=== PATIENT | female | born 2000 | race Caucasian/White ===

== ENCOUNTER 2024-06-03 15:50 | Inpatient (IN) | payer OTHER, SELFPAY ==
[2024-06-03 16:00] VITALS: BP 145/72; PULSE 80; RESP 17; TEMP 36.8; O2SAT 98
[2024-06-03 16:02] VITALS: BP 128/76; PULSE 96; O2SAT 98; BMI 30.4
--- NOTE | 2024-06-03 16:06 | PC.NURSE ---
pt JACKY from [facility] where she was discharged, pt did not like the correction staff who was there to pick her up and refused to get in the car with her. pt calm and cooperative upon arrival to [facility]
--- NOTE | 2024-06-03 16:07 | PC.NURSE ---
skilled nursinghome mission worker: Gen Birch Director Jasiel: [phone]
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
--- NOTE | 2024-06-03 17:10 | PC.NURSE ---
pt changed over to hospital attire with security. pt refused to take off her bra. Security decided to let her keep it on for now to keep pt calm as she has a hx of outbursts. RN notified. Pt calm. Daniel RIVERA/griselda IRAHETA. sitter at bedside for safety - pt from [facility]
[2024-06-03] MEDS: LORazepam 1 MG TABLET PO (19:55)
[2024-06-03 22:14] VITALS: BP 103/53; PULSE 75; RESP 12; TEMP 36.2; O2SAT 100
--- NOTE | 2024-06-03 23:19 | MHC.EDTECH ---
Pt beloingings found under plant controller desk at 22:45, placed in locker C4, belongings list completed.
[2024-06-03] MEDS: Haloperidol Lactate 5 MG/ML VIAL IM (23:32)
[2024-06-03] MEDS: LORazepam 2 MG/ML VIAL IM (23:32)
[2024-06-03] MEDS: diphenhydrAMINE HCL 50 MG/ML VIAL IM (23:32)
[2024-06-03] MEDS: Ziprasidone Mesylate 20 MG VIAL IM (23:52)
--- NOTE | 2024-06-04 | ECG_ITS ---
Test Reason : assess qt interval Blood Pressure : / mmHG Vent. Rate : 083 BPM Atrial Rate : 083 BPM P-R Int : 130 ms QRS Dur : 090 ms QT Int : 362 ms P-R-T Axes : 045 045 019 degrees QTc Int : 425 ms Normal sinus rhythm with sinus arrhythmia Septal infarct , age undetermined Abnormal ECG No previous ECGs available Referred By: Pretty Gerard Electronically Signed By:ADRIANO YEAGER
[2024-06-04 01:15] VITALS: PULSE 92; RESP 14; O2SAT 96
[2024-06-04 01:25] VITALS: BP 108/52; PULSE 94; RESP 14; TEMP 36.6; O2SAT 95
[2024-06-04 01:45] VITALS: BP 110/56; PULSE 93; RESP 14; O2SAT 96
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
[2024-06-04 08:42] VITALS: BP 99/61; PULSE 80; RESP 12; TEMP 36.4; O2SAT 96
--- NOTE | 2024-06-04 11:44 | PC.NURSE ---
labs obtained/sent to lab. pt aware urine sample is needed. will obtain when able. 1:1 sitter remains present. respirations remain even/unlabored. plan of care ongoing.
[2024-06-04 11:59] LABS: Basophils Percent Auto 0.4 % (0-2); Eosinophils Absolute Auto 0.1 X10*3/uL (0.0-0.4); Hematocrit 36.4 % (37.0-47.0); Imm Gran Abs Auto 0.01 X10*3/uL (0.00-0.03); Imm Gran Pct Auto 0.2 % (0.0-0.4); Lymphocytes Percent Auto 53.4 % (20-40); MANUAL DIFF FLAG SCAN; Mean Corpuscular Hemoglobin 29.9 pg (27.0-33.0); Mean Corpuscular Volume 90.5 fL (80.0-98.0); Mean Platelet Volume 11.5 fL (9.4-12.3); Monocytes Absolute Auto 0.6 X10*3/uL (0.1-1.2); Monocytes Percent Auto 9.8 % (2-11); Neutrophils Absolute Auto 1.9 x10*3/uL (2.0-8.3); Neutrophils Percent Auto 34.2 % (45-73); Platelet Count 161 X10*3/uL (160-400); Red Blood Count 4.02 X10*6/uL (4.20-5.50); Red Cell Distribution Width 13.2 % (11.0-16.0); SCAN SMEAR FLAG 1; White Blood Count 5.6 X10*3/uL (4.8-10.8)
[2024-06-04 12:25] LABS: Alanine Aminotransferase 12 U/L (0-31); Albumin Level 3.6 g/dL (3.5-5.0); Alkaline Phosphatase 35 U/L (39-117); Anion Gap 9 (12-20); Aspartate Amino Transferase 17 U/L (5-31); Bilirubin Total 0.2 mg/dL (0.0-1.0); Blood Urea Nitrogen 15 mg/dL (9-16); Calcium 9.4 mg/dL (8.4-10.2); Carbon Dioxide 26 mmol/L (22-29); Chloride 108 mmol/L (96-108); Creatinine Clr Calc Pharmacy 136.9; Estimated Glomerular Filt Rate > 60; Glucose Random 95 mg/dL (60-115); HCG Quantitative < 2 mIU/mL; Sodium 139 mmol/L (135-145); Total Protein 6.6 g/dL (6.5-8.0)
--- NOTE | 2024-06-04 12:45 | MHC.CARE ---
Patient seen by CARE team, IPLOC loc determined.
[2024-06-04 13:07] LABS: SLIDE REVIEW VERIFIED
--- NOTE | 2024-06-04 16:46 | PC.NURSE ---
at this time, pt currently needs UA/drug screen/ekg performed so inpatient bed search can continue. pt refusing for all interventions to be completed. care team notified/aware. 1:1 sitter remains bedside.
--- NOTE | 2024-06-04 16:47 | MHC.CARE ---
Pt bed search is exhausted. Pt [facility] was [facility] to [facility], [facility], [facility], [facility], [facility], [facility], [facility], [facility], [place]. No beds were available
--- NOTE | 2024-06-04 17:17 | PHA.MEDREC ---
Addendum entered by Toby Allen RPh 06/04/24 17:50: Med rec reviewed Original Note: Pharmacy Consult ? Medication Reconciliation Pharmacy has completed the medication reconciliation. Utilized list from [facility] to confirm med list.
--- NOTE | 2024-06-04 17:48 | PC.NURSE ---
Patient walked to by EDT Chapis, patient immediately requesting ativan, no meds ordered. Patient continues to refuse UA and EKG, states you don't need that stuff . Provider Murtaza made aware med rec is complete, patient medication request, and refusal of EKG/UA.
--- NOTE | 2024-06-04 18:10 | PC.NURSE ---
BELONGINGS MOVED TO LOCKER 2
--- NOTE | 2024-06-04 18:16 | PC.NURSE ---
Informed by commercial counsel patient allowed MP3 player at bedside to for comfort, patient not willing to put MP3 away, all staff aware patient has MP3 player at bedside.
[2024-06-04 20:10] VITALS: BP 114/64; PULSE 84; RESP 16; TEMP 36.1; O2SAT 98
--- NOTE | 2024-06-04 20:21 | PC.NURSE ---
Patient refused all PM meds, informed patient to let staff know if she changes her mind.
--- NOTE | 2024-06-04 23:27 | PC.NURSE ---
pt out of her room requesting food, unhappy with sandwiches there were offered. requested pudding, was very mad they a paper spoon was provided. back to room with pudding, yelling in room
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
--- NOTE | 2024-06-05 00:03 | PC.NURSE ---
deescalated pt sandwich provided in exchange for taking meds and cooperating
[2024-06-05] MEDS: LORazepam 1 MG TABLET PO (00:04)
--- NOTE | 2024-06-05 00:04 | PC.NURSE ---
pt refused bedtime medication from previous RN, agreed to take one ativan at this time. documented in OCT. pt aware she has to have been behavior moving forward to keep her MP3 player
--- NOTE | 2024-06-05 01:20 | PC.NURSE ---
pt sitting on the floor next to her bed, blankets over her head. crying at this time. trying to talk to pt, she didnt want to talk. was there for support for a while. security argueta present, also talked with pt, search room at that time. soda bottle found and taken, book at bedside, mp3 and air pods taken to charge, pt was happy to have that done. out of room talking to staff
--- NOTE | 2024-06-05 01:46 | PC.NURSE ---
pt talking and laughing with staff, playing mame at the table with tailor apprentice
--- NOTE | 2024-06-05 05:07 | PC.NURSE ---
encouraged pt to get some rest. pt refused. walking around the unit, requesting something to eat. pleasant with staff. ate pudding without issue
[2024-06-05 06:00] VITALS: BP 138/80; PULSE 89; RESP 18; TEMP 37.2; O2SAT 98
--- NOTE | 2024-06-05 07:11 | PC.NURSE ---
Assumed care of patient at 0645, patient appears to be in no apparent distress this am, up talking on phone in common area. Patient offers no complaints to this RN at this time. Continue plan of care for CARE team assessment today
[2024-06-05] MEDS: LORazepam 2 MG/ML VIAL IM (07:35)
[2024-06-05] MEDS: Haloperidol Lactate 5 MG/ML VIAL IM (07:35)
[2024-06-05] MEDS: diphenhydrAMINE HCL 50 MG/ML VIAL IM (07:35)
[2024-06-05] MEDS: Midazolam HCl/PF 2 MG/2 ML VIAL IM (08:50)
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
--- NOTE | 2024-06-05 12:48 | MHC.CARE ---
Faxed assessment to [facility] for review for IPLOC admission.
[2024-06-05 14:49] VITALS: PULSE 92; RESP 16; O2SAT 96
--- NOTE | 2024-06-05 15:14 | PC.NURSE ---
Late entry: This RN removed MP3 player and earbuds from pts possession during restraint
--- NOTE | 2024-06-05 17:13 | MHC.CARE ---
Late entry. Pt has been asleep and unavailable for MSU re-assessment. Pt was restrained and given IM earlier this afternoon.
--- NOTE | 2024-06-05 17:19 | PC.NURSE ---
Pt has been sleeping since being removed from restraints, respirations even and unlabored, no apparent distress noted
--- NOTE | 2024-06-05 20:50 | PC.NURSE ---
Patient refused medication requested headphones and mp3 player per coping mechanism. Was given a peanut butter and jelly sandwich a drink and her mp3 player. charge nurse aware
--- NOTE | 2024-06-06 00:04 | PC.NURSE ---
Patient medicated with Lorazepam 2 mg PO for anxiety.
[2024-06-06] MEDS: LORazepam 1 MG TABLET 2 MG PO (00:48)
[2024-06-06 05:02] VITALS: BP 135/84; PULSE 94; RESP 16; O2SAT 99
[2024-06-06] MEDS: Omeprazole 20 MG CAPSULE.DR PO (07:29)
[2024-06-06] MEDS: hydrOXYzine HCL 10 MG TABLET PO ×2 (07:29→14:14)
[2024-06-06] MEDS: LORazepam 1 MG TABLET PO ×2 (07:30→22:06)
[2024-06-06] MEDS: Divalproex Sodium 500 MG TABLET.DR PO ×3 (07:30→22:05)
--- NOTE | 2024-06-06 08:44 | PC.NURSE ---
Assumed care of patient at 0645, patient appears to be in better spirits today although reporting that she got no sleep last night. She also reports some mild nausea and GERD symptoms. Pt medicated with morning Omeprazole. Pt requesting medication to help her sleep, this RN spoke with MD Baugh who okay'd giving her her morning medications early to assist with sleeping and avoid a restraint episode similar to yesterday. pt was receptive to this RNs verbal redirection. Pt provided with hospital headphones and since been listening to music and laying in bed. Pt ate about 75% of her breakfast this am as well. Continue plan of care for inpatient bedsearch at this time
[2024-06-06] MEDS: busPIRone HCl 5 MG TABLET 15 MG PO (14:14)
[2024-06-06] MEDS: Acetaminophen 325 MG TABLET 650 MG PO (14:14)
[2024-06-06 16:36] VITALS: PULSE 87; RESP 14; O2SAT 98
--- NOTE | 2024-06-06 16:37 | PC.NURSE ---
Patient slept majority of morning without issue, woke up for lunch, now resting in bed, respirations even and unlabored, no apparent distress. Patient responds well to redirection via music, patient utilizing pod headphones at this time
[2024-06-06] MEDS: OLANZapine 7.5 MG TABLET 15 MG PO (22:06)
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
[2024-06-06] MEDS: diphenhydrAMINE HCL 50 MG/ML VIAL IM (23:19)
[2024-06-06] MEDS: Haloperidol Lactate 5 MG/ML VIAL 10 MG IM (23:19)
[2024-06-06] MEDS: LORazepam 2 MG/ML VIAL IM (23:19)
--- NOTE | 2024-06-07 02:10 | PC.NURSE ---
alejo miller engaging client regularly and apparently able to convince clinet to attempt ekg. clinet having snacks in room
--- NOTE | 2024-06-07 05:23 | PC.NURSE ---
patient awoke about ten minutes ago. fairly concrete thought process, expresses anger that foods she desires are not available, declined all offered snacks available. suggested alternate activities.
[2024-06-07 05:38] VITALS: BP 123/76; PULSE 90; RESP 16; TEMP 36.9; O2SAT 100
[2024-06-07 07:02] LABS: Amphetamine Screen Urine Not Detected (Not Detect); Barbiturates, Urine Not Detected (Not Detect); Benzodiazepines Screen Urine Not Detected (Not Detect); Buprenorphine Scr Not Detected (Not Detect); Cannabinoid Screen Urine Not Detected (Not Detect); Cocaine Screen Urine Not Detected (Not Detect); Fentanyl, urine Not Detected (Not Detect); Methadone Screen, Urine Not Detected (Not Detect); Opiate Screen Urine Not Detected (Not Detect); Oxycodone Screen Urine Not Detected (Not Detect); Phencyclidine Screen Urine Not Detected (Not Detect)
[2024-06-07 07:07] LABS: Appearance Urine Clear; Color Urine Yellow; Glucose Urine UA Negative (Negative); Leukocyte Esterase Urine Trace (Negative); Nitrite Urine Negative (Negative); PH 6.5 (5.0-9.0); Specific Gravity - Urine 1.025 (1.005-1.025); UMIC TRIGGER UACC YES; Urine Blood Negative (Negative); Urine Ketones Trace mg/dL (Negative); Urine Protein Negative (Neg-Trace)
[2024-06-07 07:12] LABS: Bacteria Urine None Seen (None Seen); Hyaline Casts Urine 0-2 /LPF (0-2); RBC Urine 0-2 /HPF (0-2); WBC Urine 0-5 /HPF (0-5)
[2024-06-07] MEDS: LORazepam 1 MG TABLET 2 MG PO (07:19)
[2024-06-07] MEDS: OLANZapine 10 MG TABLET PO (07:20)
--- NOTE | 2024-06-07 07:27 | PC.NURSE ---
Assumed care of patient at 0645. Patient was observed with increasing agitated behaviors throwing bedding items out of the room and punching the zuñiga. Security was made aware and arrived onto the unit in attempt to deescalate. The patient was agreeable to oral meds. MD made aware, MD ordered 2mg Ativan PO once and Zyprexa 10mg PO once. Patient took meds willingly, then threw the cup of water onto the floor. No distress observed. Breathing is even and unlabored.
[2024-06-07] MEDS: busPIRone HCl 5 MG TABLET 15 MG PO ×2 (08:07→21:40)
[2024-06-07] MEDS: LORazepam 2 MG/ML VIAL IM (14:26)
[2024-06-07] MEDS: OLANZapine 10 MG VIAL IM (14:26)
[2024-06-07 15:00] VITALS: BP 124/79; PULSE 92; RESP 16; TEMP 36.6; O2SAT 99; BMI 30.4
--- NOTE | 2024-06-07 16:28 | PC.NURSE ---
At approx. 1416 this patient was observed being aggressive, agitated and non-complaint with staff direction. The patient was being transferred to but was refusing to comply with staff direction to get out of bed in order to ambulate to the wheelchair to be escorted to the unit. Upon attempt to move the patient the patient became combative and was attempting to bite at staff. The patient was then moved to a gurney and restrained. Ativan 2mg IM once and Zyprexa 10mg IM once was ordered and administered to the patient on the gurney. The patient was then immediately transported to for treatment.
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
[2024-06-07] MEDS: Melatonin 3 MG TABLET 6 MG PO (21:39)
[2024-06-07] MEDS: OLANZapine 7.5 MG TABLET 15 MG PO (21:40)
[2024-06-07] MEDS: LORazepam 1 MG TABLET PO (21:40)
[2024-06-07] MEDS: hydrOXYzine HCL 10 MG TABLET PO (21:40)
[2024-06-07] MEDS: traZODone HCL 100 MG TABLET PO (21:40)
[2024-06-07] MEDS: Divalproex Sodium 500 MG TABLET.DR PO (21:40)
[2024-06-08] MEDS: Loratadine 10 MG TABLET PO ×2 (01:55→12:46)
--- NOTE | 2024-06-08 02:32 | HO.PSYEVENT ---
Event Note Date of Service: 06/08/24 Psych Restraint Event Note: pt punching zuñiga and doors at 0220 due to her medications not having been brought up by pharmacy, per RN. medications, hold, and chair were used for restraint. Time Spent With Patient Time: Total time managing care of this patient today ____ minutes.
[2024-06-08] MEDS: LORazepam 2 MG/ML VIAL IM (02:50)
[2024-06-08] MEDS: chlorproMAZINE HCl 25 MG/ML AMPUL 100 MG IM (02:52)
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
[2024-06-08 08:00] VITALS: BP 142/91; PULSE 112; RESP 18; TEMP 36.5; O2SAT 100
[2024-06-08] MEDS: busPIRone HCl 5 MG TABLET 15 MG PO (08:17)
[2024-06-08 08:18] VITALS: BP 142/91
[2024-06-08] MEDS: cloNIDine HCL 0.1 MG TABLET PO (08:18)
[2024-06-08] MEDS: Omeprazole 20 MG CAPSULE.DR PO (08:18)
[2024-06-08] MEDS: Propranolol HCL 10 MG TABLET 30 MG PO (08:19)
[2024-06-08] MEDS: Cholecalciferol (Vitamin D3) 25 MCG TABLET PO (08:20)
[2024-06-08] MEDS: LORazepam 1 MG TABLET PO (08:20)
[2024-06-08] MEDS: Divalproex Sodium 500 MG TABLET.DR PO (08:21)
[2024-06-08] MEDS: polyethylene glycoL 3350 17 GM POWD.PACK PO (08:27)
[2024-06-08] MEDS: Fluticasone Propionate Nasal 16 GM SPRAY 2 SPRAY NOSTRIL-B (09:21)
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
[2024-06-08] MEDS: Acetaminophen 325 MG TABLET 650 MG PO (12:31)
[2024-06-08] MEDS: Ibuprofen 600 MG TABLET PO (18:20)
--- NOTE | 2024-06-08 18:57 | PC.NURSE ---
TW reviewed Behavioral Plan for Jessica this evening and pt in agreement and gave verbal consent (she was in bed under covers and didn't want to take her arms out to sign). Copy of behavioral plan given to pt, placed in chart, and posted in nursing station for visibility.
[2024-06-08 20:00] VITALS: RESP 16
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
[2024-06-09] MEDS: Loratadine 10 MG TABLET PO (05:22)
[2024-06-09] MEDS: Omeprazole 20 MG CAPSULE.DR PO (06:29)
[2024-06-09 08:00] VITALS: BP 145/96; PULSE 100; RESP 18; TEMP 36.9; O2SAT 98
[2024-06-09] MEDS: hydrOXYzine HCL 10 MG TABLET PO (08:29)
[2024-06-09] MEDS: Divalproex Sodium 500 MG TABLET.DR PO (08:29)
[2024-06-09] MEDS: Cholecalciferol (Vitamin D3) 25 MCG TABLET PO (08:29)
[2024-06-09] MEDS: LORazepam 1 MG TABLET PO (08:29)
[2024-06-09] MEDS: busPIRone HCl 5 MG TABLET 15 MG PO ×2 (08:29→15:59)
[2024-06-09 08:35] VITALS: BP 145/96; PULSE 110
[2024-06-09] MEDS: Propranolol HCL 10 MG TABLET 30 MG PO (08:35)
[2024-06-09] MEDS: cloNIDine HCL 0.1 MG TABLET PO (08:38)
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
[2024-06-09] MEDS: Acetaminophen 325 MG TABLET 650 MG PO (10:10)
[2024-06-10] MEDS: traZODone HCL 50 MG TABLET PO ×2 (00:02→01:40)
[2024-06-10] MEDS: hydrOXYzine HCL 25 MG TABLET PO (00:02)
[2024-06-10] MEDS: LORazepam 1 MG TABLET PO ×2 (00:03→14:01)
[2024-06-10] MEDS: OLANZapine ODT 10 MG TAB.RAPDIS TRANSLINGU ×2 (00:04→13:59)
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
[2024-06-10] MEDS: Fluticasone Propionate Nasal 16 GM SPRAY 2 SPRAY NOSTRIL-B (01:39)
[2024-06-10] MEDS: Melatonin 3 MG TABLET 6 MG PO (01:39)
[2024-06-10] MEDS: Ibuprofen 600 MG TABLET PO (01:40)
[2024-06-10] MEDS: traZODone HCL 100 MG TABLET PO (02:57)
[2024-06-10] MEDS: OLANZapine ODT 10 MG TAB.RAPDIS 20 MG TRANSLINGU (02:57)
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
[2024-06-10] MEDS: Cholecalciferol (Vitamin D3) 25 MCG TABLET PO (10:03)
[2024-06-10] MEDS: ARIPiprazole 10 MG TABLET PO (10:04)
[2024-06-10] MEDS: Omeprazole 20 MG CAPSULE.DR PO (10:04)
[2024-06-10] MEDS: busPIRone HCl 5 MG TABLET 15 MG PO ×2 (10:05→13:59)
[2024-06-10] MEDS: Loratadine 10 MG TABLET PO (10:05)
[2024-06-10 10:11] VITALS: BP 134/76; PULSE 88
[2024-06-10] MEDS: Propranolol HCL 10 MG TABLET 30 MG PO (10:11)
[2024-06-10 10:12] VITALS: BP 134/76
[2024-06-10] MEDS: cloNIDine HCL 0.1 MG TABLET PO (10:12)
[2024-06-10 10:15] VITALS: BP 134/81; PULSE 88; RESP 18; TEMP 36.5; O2SAT 96
--- NOTE | 2024-06-10 13:02 | PC.NURSE ---
As of today pt is a section 7.
[2024-06-10] MEDS: hydrOXYzine HCL 10 MG TABLET PO (13:59)
[2024-06-10] MEDS: Sennosides 8.6 MG TABLET PO (14:09)
[2024-06-10] MEDS: Ondansetron ODT 4 MG TAB.RAPDIS TRANSLINGU (14:10)
[2024-06-10] MEDS: Lactase TABLET 1 TAB PO (17:05)
[2024-06-11] MEDS: Ondansetron ODT 4 MG TAB.RAPDIS TRANSLINGU (01:13)
[2024-06-11 01:21] VITALS: BP 127/75; PULSE 87; RESP 16
[2024-06-11] MEDS: Melatonin 3 MG TABLET 6 MG PO (02:44)
[2024-06-11] MEDS: hydrOXYzine HCL 25 MG TABLET PO (02:45)
[2024-06-11] MEDS: OLANZapine ODT 10 MG TAB.RAPDIS TRANSLINGU (02:46)
[2024-06-11] MEDS: LORazepam 1 MG TABLET 2 MG PO (06:42)
[2024-06-11] MEDS: Omeprazole 20 MG CAPSULE.DR PO (06:42)
[2024-06-11] MEDS: OLANZapine ODT 10 MG TAB.RAPDIS 20 MG TRANSLINGU ×2 (06:43→22:26)
[2024-06-11 08:00] VITALS: BP 135/84; PULSE 90; TEMP 36.5; O2SAT 95
[2024-06-11] MEDS: ARIPiprazole 10 MG TABLET PO (08:53)
[2024-06-11 08:54] VITALS: BP 137/87; PULSE 104
[2024-06-11] MEDS: busPIRone HCl 5 MG TABLET 15 MG PO ×3 (08:54→22:27)
[2024-06-11] MEDS: cloNIDine HCL 0.1 MG TABLET PO (08:54)
[2024-06-11] MEDS: Lactase TABLET 1 TAB PO ×2 (08:54→17:47)
[2024-06-11] MEDS: Propranolol HCL 10 MG TABLET 30 MG PO ×2 (08:54→22:24)
[2024-06-11] MEDS: Loratadine 10 MG TABLET PO (08:55)
[2024-06-11] MEDS: Cholecalciferol (Vitamin D3) 25 MCG TABLET PO (08:55)
[2024-06-11] MEDS: LORazepam 1 MG TABLET PO ×3 (08:55→22:28)
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
[2024-06-11] MEDS: Artificial Tears 15 ML DROPS 1 DROP EYE-BOTH (15:42)
[2024-06-11 22:24] VITALS: BP 117/57; PULSE 90
[2024-06-11] MEDS: Divalproex Sodium ER 500 MG TAB.ER.24H 1000 MG PO (22:25)
[2024-06-11] MEDS: traZODone HCL 100 MG TABLET PO (22:25)
[2024-06-11] MEDS: hydrOXYzine HCL 10 MG TABLET PO (22:26)
[2024-06-11 22:30] VITALS: BP 117/57; PULSE 90; TEMP 36.6
[2024-06-12] MEDS: hydrOXYzine HCL 25 MG TABLET PO (01:19)
[2024-06-12] MEDS: traZODone HCL 50 MG TABLET PO (01:19)
[2024-06-12] MEDS: Melatonin 3 MG TABLET 6 MG PO (01:44)
[2024-06-12] MEDS: Acetaminophen 325 MG TABLET 650 MG PO (04:29)
[2024-06-12] MEDS: Omeprazole 20 MG CAPSULE.DR PO (07:17)
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
[2024-06-12 08:00] VITALS: BP 142/80; PULSE 91; RESP 19; TEMP 36.5; O2SAT 98
[2024-06-12 08:23] VITALS: BP 142/80; PULSE 91
[2024-06-12] MEDS: Propranolol HCL 10 MG TABLET 30 MG PO (08:23)
[2024-06-12] MEDS: ARIPiprazole 10 MG TABLET PO (08:23)
[2024-06-12] MEDS: Lactase TABLET 1 TAB PO (08:24)
[2024-06-12 08:25] VITALS: BP 142/80
[2024-06-12] MEDS: cloNIDine HCL 0.1 MG TABLET PO (08:25)
[2024-06-12] MEDS: busPIRone HCl 5 MG TABLET 15 MG PO ×2 (08:25→14:33)
[2024-06-12] MEDS: Cholecalciferol (Vitamin D3) 25 MCG TABLET PO (08:25)
[2024-06-12] MEDS: OLANZapine ODT 10 MG TAB.RAPDIS TRANSLINGU (08:26)
[2024-06-12] MEDS: Loratadine 10 MG TABLET PO (08:26)
[2024-06-12] MEDS: LORazepam 1 MG TABLET PO (08:30)
[2024-06-12] MEDS: Ibuprofen 600 MG TABLET PO (08:31)
[2024-06-12] MEDS: Fluticasone Propionate Nasal 16 GM SPRAY 2 SPRAY NOSTRIL-B (08:32)
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
[2024-06-12 20:00] VITALS: RESP 16
[2024-06-12] MEDS: Sennosides 8.6 MG TABLET PO (23:42)
[2024-06-13] MEDS: Milk of Magnesia 30 ML ORAL.SUSP PO (02:22)
--- NOTE | 2024-06-13 03:01 | HO.PSYEVENT ---
Event Note Date of Service: 06/13/24 Psych Restraint Event Note: pt refused HS meds, escalating all NOC. threw table, head-banging, refusing PO meds. IMs given for safety. Time Spent With Patient Time: Total time managing care of this patient today ____ minutes.
[2024-06-13] MEDS: OLANZapine ODT 10 MG TAB.RAPDIS TRANSLINGU (03:02)
[2024-06-13] MEDS: LORazepam 1 MG TABLET PO ×3 (03:02→21:51)
--- NOTE | 2024-06-13 03:46 | PC.NURSE ---
Jessica was observed in bed appearing to be sleep at the start of the shift. TW approached her @ 2200 for med administration, at which time she declined, stating never. I'm not gonna change my mind. Approximately around 2300 she requested HS meds, informed her that meds had to changed from not given in order to administer, she became frustrated with the process and went to group B. Staff could hear her slamming the room door and screaming. Staff approached to offer support with minimal effect, security called to assist. she was able to de-escalate and remain calm. Jessica again expressed loss of behavioral control as she was once again heard and observed by staff banging her head on the wall while sitting on the floor, support offered, reminded of behavior plan and offered prn which she once again declined. She requested writing material which was provided and she remained calm for a short while until she broke the crayon and began to yell and bang. Staff once again provided support to de-escalate, reinforced her behavior plan and informed her that MD was notified and she has a choice of taking PO/IM medication to decrease her agitation. She agreed to take meds PO, I'll take it by mouth security present and meds taken without problems, mouth check compliant. Remained in behavioral control, provided with SAJAN alexander/ 1:1 interaction. Reported @ 0400 I feel dizzy. as she stated Ativan makes her dizzy, instructed to go to bed and staff will check on her later. Jessica is currently quiet, calm and laying in bed.
[2024-06-13 09:00] VITALS: BP 128/81; PULSE 88; RESP 20; TEMP 37.1; O2SAT 99
[2024-06-13 09:04] VITALS: BP 128/81; PULSE 99
[2024-06-13] MEDS: Propranolol HCL 10 MG TABLET 30 MG PO (09:04)
[2024-06-13] MEDS: ARIPiprazole 10 MG TABLET PO (09:04)
[2024-06-13] MEDS: Omeprazole 20 MG CAPSULE.DR PO (09:04)
[2024-06-13 09:05] VITALS: BP 128/81
[2024-06-13] MEDS: Sennosides 8.6 MG TABLET PO (09:05)
[2024-06-13] MEDS: cloNIDine HCL 0.1 MG TABLET PO (09:05)
[2024-06-13] MEDS: Loratadine 10 MG TABLET PO (09:05)
[2024-06-13] MEDS: busPIRone HCl 5 MG TABLET 15 MG PO ×3 (09:05→21:51)
[2024-06-13] MEDS: Cholecalciferol (Vitamin D3) 25 MCG TABLET PO (09:06)
[2024-06-13] MEDS: hydrOXYzine HCL 25 MG TABLET PO ×2 (09:06→16:04)
[2024-06-13] MEDS: polyethylene glycoL 3350 17 GM POWD.PACK PO (09:08)
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
[2024-06-13] MEDS: Lactase TABLET 1 TAB PO ×2 (12:03→16:08)
[2024-06-13] MEDS: Ibuprofen 600 MG TABLET PO ×2 (12:03→21:07)
[2024-06-13] MEDS: Fluticasone Propionate Nasal 16 GM SPRAY 2 SPRAY NOSTRIL-B (15:09)
[2024-06-13] MEDS: Ondansetron ODT 4 MG TAB.RAPDIS TRANSLINGU (16:50)
[2024-06-13] MEDS: Acetaminophen 325 MG TABLET 650 MG PO (21:26)
[2024-06-13 21:50] VITALS: BP 138/84; PULSE 85; RESP 16; TEMP 36.9; O2SAT 98
[2024-06-14] MEDS: LORazepam 1 MG TABLET PO ×4 (01:07→23:25)
[2024-06-14] MEDS: Melatonin 3 MG TABLET 6 MG PO ×2 (01:08→23:23)
[2024-06-14 01:09] VITALS: BP 116/74; PULSE 74
[2024-06-14] MEDS: Propranolol HCL 10 MG TABLET 30 MG PO ×3 (01:09→23:21)
[2024-06-14] MEDS: traZODone HCL 50 MG TABLET 150 MG PO ×2 (01:11→23:24)
[2024-06-14] MEDS: Divalproex Sodium ER 500 MG TAB.ER.24H 1000 MG PO ×2 (01:12→23:23)
[2024-06-14] MEDS: hydrOXYzine HCL 10 MG TABLET PO ×2 (01:12→23:23)
[2024-06-14] MEDS: OLANZapine ODT 10 MG TAB.RAPDIS 20 MG TRANSLINGU ×2 (01:13→23:24)
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
[2024-06-14 09:40] VITALS: BP 137/78; PULSE 88; TEMP 36.4; O2SAT 98
[2024-06-14] MEDS: Omeprazole 20 MG CAPSULE.DR PO (09:42)
[2024-06-14] MEDS: Cholecalciferol (Vitamin D3) 25 MCG TABLET PO (09:42)
[2024-06-14] MEDS: cloNIDine HCL 0.1 MG TABLET PO (09:42)
[2024-06-14] MEDS: ARIPiprazole 10 MG TABLET PO (09:42)
[2024-06-14] MEDS: busPIRone HCl 5 MG TABLET 15 MG PO ×3 (09:42→23:22)
[2024-06-14] MEDS: Lactase TABLET 1 TAB PO ×2 (09:42→16:27)
[2024-06-14] MEDS: Loratadine 10 MG TABLET PO (09:43)
[2024-06-14] MEDS: polyethylene glycoL 3350 17 GM POWD.PACK PO (09:43)
[2024-06-14 23:15] VITALS: BP 116/55; PULSE 90; TEMP 36.4
[2024-06-14 23:21] VITALS: BP 116/55; PULSE 90
[2024-06-14] MEDS: Acetaminophen 325 MG TABLET 650 MG PO (23:32)
[2024-06-15] MEDS: OLANZapine ODT 10 MG TAB.RAPDIS TRANSLINGU (01:22)
[2024-06-15] MEDS: hydrOXYzine HCL 25 MG TABLET PO (01:22)
[2024-06-15] MEDS: Omeprazole 20 MG CAPSULE.DR PO (07:42)
[2024-06-15 08:00] VITALS: BP 127/81; PULSE 81; RESP 20; TEMP 36.4; O2SAT 100
[2024-06-15] MEDS: busPIRone HCl 5 MG TABLET 15 MG PO (09:17)
[2024-06-15] MEDS: Cholecalciferol (Vitamin D3) 25 MCG TABLET PO (09:18)
[2024-06-15] MEDS: Lactase TABLET 1 TAB PO (09:18)
[2024-06-15 09:19] VITALS: BP 127/81
[2024-06-15] MEDS: cloNIDine HCL 0.1 MG TABLET PO (09:19)
[2024-06-15] MEDS: LORazepam 1 MG TABLET PO ×2 (09:19→21:07)
[2024-06-15] MEDS: Loratadine 10 MG TABLET PO (09:19)
[2024-06-15 09:20] VITALS: BP 127/81; PULSE 81
[2024-06-15] MEDS: Propranolol HCL 10 MG TABLET 30 MG PO (09:20)
[2024-06-15] MEDS: ARIPiprazole 10 MG TABLET PO (09:20)
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
[2024-06-15] MEDS: polyethylene glycoL 3350 17 GM POWD.PACK PO (13:04)
[2024-06-15] MEDS: Acetaminophen 325 MG TABLET 650 MG PO (13:25)
[2024-06-15 19:54] VITALS: BP 132/67; PULSE 78; RESP 18; TEMP 36.5; O2SAT 100
[2024-06-15] MEDS: Ibuprofen 600 MG TABLET PO (21:20)
[2024-06-16 08:00] VITALS: BP 143/93; PULSE 71; RESP 18; O2SAT 100
[2024-06-16] MEDS: polyethylene glycoL 3350 17 GM POWD.PACK PO (08:23)
[2024-06-16 08:24] VITALS: BP 143/93
[2024-06-16] MEDS: LORazepam 1 MG TABLET PO ×3 (08:24→22:11)
[2024-06-16] MEDS: Cholecalciferol (Vitamin D3) 25 MCG TABLET PO (08:24)
[2024-06-16] MEDS: Omeprazole 20 MG CAPSULE.DR PO (08:24)
[2024-06-16] MEDS: Lactase TABLET 1 TAB PO (08:24)
[2024-06-16] MEDS: cloNIDine HCL 0.1 MG TABLET PO (08:24)
[2024-06-16] MEDS: ARIPiprazole 10 MG TABLET PO (08:25)
[2024-06-16] MEDS: busPIRone HCl 5 MG TABLET 15 MG PO ×3 (08:25→22:09)
[2024-06-16] MEDS: Loratadine 10 MG TABLET PO (08:25)
[2024-06-16] MEDS: Propranolol HCL 10 MG TABLET 30 MG PO ×2 (08:25→22:09)
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
[2024-06-16] MEDS: Divalproex Sodium ER 500 MG TAB.ER.24H 1000 MG PO ×2 (11:15→22:09)
[2024-06-16] MEDS: OLANZapine ODT 10 MG TAB.RAPDIS TRANSLINGU ×2 (11:15→13:59)
[2024-06-16] MEDS: Ondansetron ODT 4 MG TAB.RAPDIS TRANSLINGU (15:12)
[2024-06-16 20:00] VITALS: RESP 18
[2024-06-16] MEDS: hydrOXYzine HCL 10 MG TABLET PO (22:10)
[2024-06-16] MEDS: traZODone HCL 50 MG TABLET 150 MG PO (22:10)
[2024-06-16] MEDS: Melatonin 3 MG TABLET 6 MG PO (22:10)
[2024-06-16] MEDS: OLANZapine ODT 10 MG TAB.RAPDIS 20 MG TRANSLINGU (22:11)
[2024-06-17 07:59] VITALS: BP 132/82; PULSE 80
[2024-06-17] MEDS: Propranolol HCL 10 MG TABLET 30 MG PO (07:59)
[2024-06-17] MEDS: ARIPiprazole 10 MG TABLET PO (07:59)
[2024-06-17] MEDS: Lactase TABLET 1 TAB PO ×3 (07:59→16:58)
[2024-06-17 08:00] VITALS: BP 132/81; PULSE 97; RESP 18; TEMP 36.4; O2SAT 100
[2024-06-17] MEDS: Cholecalciferol (Vitamin D3) 25 MCG TABLET PO (08:00)
[2024-06-17] MEDS: LORazepam 1 MG TABLET PO ×2 (08:00→14:15)
[2024-06-17] MEDS: Omeprazole 20 MG CAPSULE.DR PO ×2 (08:00)
[2024-06-17 08:01] VITALS: BP 130/81
[2024-06-17] MEDS: busPIRone HCl 5 MG TABLET 15 MG PO ×2 (08:01→14:14)
[2024-06-17] MEDS: Loratadine 10 MG TABLET PO (08:01)
[2024-06-17] MEDS: cloNIDine HCL 0.1 MG TABLET PO (08:01)
[2024-06-17] MEDS: polyethylene glycoL 3350 17 GM POWD.PACK PO (08:03)
[2024-06-17] MEDS: Ibuprofen 600 MG TABLET PO ×2 (08:06→16:58)
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
[2024-06-17] MEDS: Acetaminophen 325 MG TABLET 650 MG PO (11:15)
[2024-06-17] MEDS: OLANZapine ODT 10 MG TAB.RAPDIS TRANSLINGU (14:14)
[2024-06-17] MEDS: hydrOXYzine HCL 25 MG TABLET PO (14:15)
[2024-06-17 19:42] VITALS: BP 158/89; PULSE 101; TEMP 37.1; O2SAT 100
[2024-06-17 20:00] VITALS: BP 158/89; PULSE 101; TEMP 37.1; O2SAT 100
[2024-06-18] MEDS: Divalproex Sodium ER 500 MG TAB.ER.24H 1000 MG PO ×2 (02:12→21:09)
[2024-06-18] MEDS: traZODone HCL 50 MG TABLET 150 MG PO ×2 (02:12→21:09)
[2024-06-18] MEDS: Melatonin 3 MG TABLET 6 MG PO ×2 (02:12→21:09)
[2024-06-18] MEDS: OLANZapine ODT 10 MG TAB.RAPDIS 20 MG TRANSLINGU ×2 (02:13→21:09)
[2024-06-18] MEDS: hydrOXYzine HCL 10 MG TABLET PO ×2 (02:13→21:09)
[2024-06-18] MEDS: busPIRone HCl 5 MG TABLET 15 MG PO ×4 (02:13→21:09)
--- NOTE | 2024-06-18 02:48 | PC.NURSE ---
Patient refused HS medication when offered. Requested Lorazepam at 2400. Requested remaining HS medications at 0213. Meds were administered and documented as unscheduled dose.
[2024-06-18] MEDS: polyethylene glycoL 3350 17 GM POWD.PACK PO (08:09)
[2024-06-18 08:10] VITALS: BP 136/79; BP 139/79; PULSE 87; RESP 18; TEMP 36.4; O2SAT 100
[2024-06-18] MEDS: LORazepam 1 MG TABLET PO ×3 (08:10→21:09)
[2024-06-18] MEDS: Loratadine 10 MG TABLET PO (08:10)
[2024-06-18] MEDS: Cholecalciferol (Vitamin D3) 25 MCG TABLET PO (08:10)
[2024-06-18] MEDS: ARIPiprazole 10 MG TABLET PO (08:10)
[2024-06-18] MEDS: cloNIDine HCL 0.1 MG TABLET PO (08:10)
[2024-06-18] MEDS: Lactase TABLET 1 TAB PO ×3 (08:10→16:49)
[2024-06-18] MEDS: Propranolol HCL 10 MG TABLET 30 MG PO ×2 (08:10→21:09)
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
[2024-06-18] MEDS: Hydrocortisone 1 % Cream 28.35 GM TUBE 1 APPL TOPICAL (13:08)
[2024-06-18] MEDS: Acetaminophen 325 MG TABLET 650 MG PO (16:49)
[2024-06-18 20:00] VITALS: BP 138/75; PULSE 95; RESP 16; TEMP 36.6; O2SAT 100
[2024-06-18] MEDS: OLANZapine ODT 10 MG TAB.RAPDIS TRANSLINGU (21:03)
[2024-06-19] MEDS: Hydrocortisone 1 % Cream 28.35 GM TUBE 1 APPL TOPICAL (04:59)
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
[2024-06-19 09:27] VITALS: BP 140/81
[2024-06-19] MEDS: polyethylene glycoL 3350 17 GM POWD.PACK PO (09:27)
[2024-06-19] MEDS: LORazepam 1 MG TABLET PO ×3 (09:27→20:04)
[2024-06-19] MEDS: cloNIDine HCL 0.1 MG TABLET PO (09:27)
[2024-06-19 09:31] VITALS: BP 140/81; PULSE 97
[2024-06-19] MEDS: Lactase TABLET 1 TAB PO (09:31)
[2024-06-19] MEDS: Propranolol HCL 10 MG TABLET 30 MG PO ×2 (09:31→20:04)
[2024-06-19] MEDS: Omeprazole 20 MG CAPSULE.DR PO (09:31)
[2024-06-19] MEDS: busPIRone HCl 5 MG TABLET 15 MG PO ×3 (09:31→20:04)
[2024-06-19] MEDS: Cholecalciferol (Vitamin D3) 25 MCG TABLET PO (09:31)
[2024-06-19] MEDS: Loratadine 10 MG TABLET PO (09:32)
[2024-06-19] MEDS: OLANZapine ODT 10 MG TAB.RAPDIS TRANSLINGU (18:34)
[2024-06-19 20:00] VITALS: BP 152/71; PULSE 104; RESP 18; TEMP 36.9; O2SAT 100
[2024-06-19] MEDS: Divalproex Sodium ER 500 MG TAB.ER.24H 1000 MG PO (20:04)
[2024-06-19] MEDS: OLANZapine ODT 10 MG TAB.RAPDIS 20 MG TRANSLINGU (20:04)
[2024-06-19] MEDS: hydrOXYzine HCL 10 MG TABLET PO (20:55)
[2024-06-19] MEDS: traZODone HCL 50 MG TABLET 150 MG PO (20:55)
[2024-06-19] MEDS: hydrOXYzine HCL 25 MG TABLET PO (20:55)
[2024-06-19] MEDS: Melatonin 3 MG TABLET 6 MG PO (20:55)
[2024-06-20] MEDS: Omeprazole 20 MG CAPSULE.DR PO (06:41)
[2024-06-20 08:02] VITALS: BP 132/68; PULSE 77
[2024-06-20] MEDS: Loratadine 10 MG TABLET PO (08:02)
[2024-06-20] MEDS: Cholecalciferol (Vitamin D3) 25 MCG TABLET PO (08:02)
[2024-06-20] MEDS: polyethylene glycoL 3350 17 GM POWD.PACK PO (08:02)
[2024-06-20] MEDS: Propranolol HCL 10 MG TABLET 30 MG PO ×2 (08:02→23:24)
[2024-06-20 08:03] VITALS: BP 132/68; PULSE 97; TEMP 36.5; O2SAT 100
[2024-06-20] MEDS: LORazepam 1 MG TABLET PO ×3 (08:03→23:21)
[2024-06-20] MEDS: Lactase TABLET 1 TAB PO ×2 (08:03→17:14)
[2024-06-20] MEDS: cloNIDine HCL 0.1 MG TABLET PO (08:03)
[2024-06-20] MEDS: busPIRone HCl 5 MG TABLET 15 MG PO ×3 (08:03→23:20)
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
[2024-06-20] MEDS: Sodium Chloride 0.65 % Nasal 44 ML SPRBTL 1 SPRAY NOSTRIL-B (14:52)
[2024-06-20 20:00] VITALS: BP 122/56; PULSE 89; TEMP 37.9; O2SAT 98
[2024-06-20] MEDS: Acetaminophen 325 MG TABLET 650 MG PO (21:04)
[2024-06-20 22:00] VITALS: BP 113/55; PULSE 107; TEMP 36.3
[2024-06-20 23:20] VITALS: BP 145/81; PULSE 99
[2024-06-20] MEDS: traZODone HCL 50 MG TABLET 150 MG PO (23:22)
[2024-06-20] MEDS: hydrOXYzine HCL 10 MG TABLET PO (23:22)
[2024-06-20] MEDS: Melatonin 3 MG TABLET 6 MG PO (23:23)
[2024-06-20 23:24] VITALS: BP 145/81; PULSE 99
[2024-06-20] MEDS: Divalproex Sodium ER 500 MG TAB.ER.24H 1000 MG PO (23:25)
[2024-06-20] MEDS: OLANZapine ODT 10 MG TAB.RAPDIS 20 MG TRANSLINGU (23:26)
[2024-06-21] MEDS: Omeprazole 20 MG CAPSULE.DR PO (07:23)
[2024-06-21 08:24] VITALS: BP 122/87; PULSE 78; RESP 18; TEMP 36.4; O2SAT 100
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
[2024-06-21] MEDS: polyethylene glycoL 3350 17 GM POWD.PACK PO (12:33)
[2024-06-21] MEDS: Lactase TABLET 1 TAB PO ×2 (12:33→17:37)
[2024-06-21] MEDS: LORazepam 1 MG TABLET PO (12:34)
[2024-06-21] MEDS: Loratadine 10 MG TABLET PO (12:34)
[2024-06-21] MEDS: Cholecalciferol (Vitamin D3) 25 MCG TABLET PO (12:34)
[2024-06-21] MEDS: busPIRone HCl 5 MG TABLET 15 MG PO (13:54)
[2024-06-21] MEDS: Acetaminophen 325 MG TABLET 650 MG PO (13:54)
[2024-06-21] MEDS: Ibuprofen 600 MG TABLET PO (16:11)
[2024-06-21 19:56] VITALS: BP 147/78; PULSE 79; RESP 14; TEMP 36.7; O2SAT 100
[2024-06-22] MEDS: Propranolol HCL 10 MG TABLET 30 MG PO ×3 (01:05→22:59)
[2024-06-22] MEDS: Divalproex Sodium ER 500 MG TAB.ER.24H 1000 MG PO ×2 (01:05→23:00)
[2024-06-22] MEDS: busPIRone HCl 5 MG TABLET 15 MG PO ×4 (01:05→22:59)
[2024-06-22] MEDS: OLANZapine ODT 10 MG TAB.RAPDIS 20 MG TRANSLINGU ×2 (01:05→23:00)
[2024-06-22] MEDS: Melatonin 3 MG TABLET 6 MG PO ×2 (01:06→23:00)
[2024-06-22] MEDS: hydrOXYzine HCL 10 MG TABLET PO ×2 (01:06→23:00)
[2024-06-22] MEDS: traZODone HCL 50 MG TABLET 150 MG PO ×2 (01:06→22:59)
[2024-06-22] MEDS: LORazepam 1 MG TABLET PO ×4 (01:06→22:59)
[2024-06-22] MEDS: Sodium Chloride 0.65 % Nasal 44 ML SPRBTL 1 SPRAY NOSTRIL-B ×2 (02:12→17:11)
[2024-06-22] MEDS: Omeprazole 20 MG CAPSULE.DR PO (10:27)
[2024-06-22] MEDS: Lactase TABLET 1 TAB PO (10:27)
[2024-06-22 10:28] VITALS: BP 135/70; PULSE 93
[2024-06-22] MEDS: Cholecalciferol (Vitamin D3) 25 MCG TABLET PO (10:30)
[2024-06-22] MEDS: Loratadine 10 MG TABLET PO (10:31)
[2024-06-22] MEDS: polyethylene glycoL 3350 17 GM POWD.PACK PO (10:31)
[2024-06-22] MEDS: cloNIDine HCL 0.1 MG TABLET PO (10:33)
[2024-06-22 10:36] VITALS: BP 135/70; PULSE 93; RESP 18; TEMP 36.6; O2SAT 95
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
[2024-06-22] MEDS: Ondansetron ODT 4 MG TAB.RAPDIS TRANSLINGU (16:27)
[2024-06-22] MEDS: Sennosides 8.6 MG TABLET PO (17:48)
[2024-06-22 17:59] VITALS: BP 106/61; PULSE 82; RESP 18; O2SAT 98
[2024-06-22] MEDS: OLANZapine ODT 10 MG TAB.RAPDIS TRANSLINGU (19:01)
[2024-06-22] MEDS: Albuterol Sulfate 90 MCG 8 GM INHALER 2 PUFF INHALE (19:02)
[2024-06-22] MEDS: Acetaminophen 325 MG TABLET 650 MG PO (21:15)
[2024-06-22 22:58] VITALS: BP 135/70; PULSE 79
[2024-06-23] MEDS: Lactase TABLET 1 TAB PO (09:31)
[2024-06-23] MEDS: busPIRone HCl 5 MG TABLET 15 MG PO ×2 (09:31→22:15)
[2024-06-23 09:32] VITALS: BP 133/79; PULSE 92
[2024-06-23] MEDS: cloNIDine HCL 0.1 MG TABLET PO (09:32)
[2024-06-23] MEDS: Cholecalciferol (Vitamin D3) 25 MCG TABLET PO (09:32)
[2024-06-23] MEDS: Propranolol HCL 10 MG TABLET 30 MG PO ×2 (09:32→22:17)
[2024-06-23] MEDS: LORazepam 1 MG TABLET PO ×3 (09:35→22:17)
[2024-06-23] MEDS: Omeprazole 20 MG CAPSULE.DR PO (09:36)
[2024-06-23] MEDS: Loratadine 10 MG TABLET PO (09:36)
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
[2024-06-23] MEDS: OLANZapine ODT 10 MG TAB.RAPDIS TRANSLINGU (19:01)
--- NOTE | 2024-06-23 19:50 | PC.NURSE ---
This afternoon Jessica had labs ordered. They were court ordered. This nurse prepped her and provided lidocaine topical as ordered. This nurse offered support during blood draw attempt. 2 attempts were made in both antecube. She adamantly refused attempts in her hands. Dr Arrieta aware.
[2024-06-23 20:30] VITALS: BP 128/66; PULSE 93; RESP 16; TEMP 36.4; O2SAT 100
[2024-06-23] MEDS: traZODone HCL 50 MG TABLET 150 MG PO (22:16)
[2024-06-23] MEDS: Melatonin 3 MG TABLET 6 MG PO (22:16)
[2024-06-23] MEDS: hydrOXYzine HCL 10 MG TABLET PO (22:17)
[2024-06-23] MEDS: OLANZapine ODT 10 MG TAB.RAPDIS 20 MG TRANSLINGU (22:18)
[2024-06-23] MEDS: Divalproex Sodium ER 500 MG TAB.ER.24H 1000 MG PO (22:18)
[2024-06-24] MEDS: Ibuprofen 600 MG TABLET PO ×2 (00:38→13:27)
[2024-06-24] MEDS: Cholecalciferol (Vitamin D3) 25 MCG TABLET PO (12:35)
[2024-06-24] MEDS: Lactase TABLET 1 TAB PO (12:35)
[2024-06-24] MEDS: cloNIDine HCL 0.1 MG TABLET PO (12:35)
[2024-06-24] MEDS: busPIRone HCl 5 MG TABLET 15 MG PO (12:35)
[2024-06-24] MEDS: Propranolol HCL 10 MG TABLET 30 MG PO (12:36)
[2024-06-24] MEDS: Loratadine 10 MG TABLET PO (12:37)
[2024-06-24] MEDS: LORazepam 1 MG TABLET PO (12:39)
[2024-06-24] MEDS: Omeprazole 20 MG CAPSULE.DR PO (12:39)
[2024-06-24 12:41] VITALS: BP 130/79; PULSE 75; RESP 18; TEMP 36.4; O2SAT 100
[2024-06-24] MEDS: Acetaminophen 325 MG TABLET 650 MG PO (13:04)
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
[2024-06-24 20:00] VITALS: BP 137/85; PULSE 77; RESP 20; TEMP 36.4; O2SAT 100
[2024-06-25 00:20] VITALS: BP 132/70; PULSE 96
[2024-06-25] MEDS: Propranolol HCL 10 MG TABLET 30 MG PO ×3 (00:20→23:06)
[2024-06-25] MEDS: traZODone HCL 50 MG TABLET 150 MG PO ×2 (00:21→23:03)
[2024-06-25] MEDS: Divalproex Sodium ER 500 MG TAB.ER.24H 1000 MG PO ×2 (00:21→23:02)
[2024-06-25] MEDS: hydrOXYzine HCL 25 MG TABLET PO (00:21)
[2024-06-25] MEDS: Ibuprofen 600 MG TABLET PO ×2 (00:22→16:00)
[2024-06-25] MEDS: LORazepam 1 MG TABLET PO ×4 (00:23→21:27)
[2024-06-25] MEDS: hydrOXYzine HCL 10 MG TABLET PO (00:23)
[2024-06-25] MEDS: busPIRone HCl 5 MG TABLET 15 MG PO ×4 (00:24→23:03)
[2024-06-25] MEDS: Melatonin 3 MG TABLET 6 MG PO (00:24)
[2024-06-25] MEDS: OLANZapine ODT 10 MG TAB.RAPDIS 20 MG TRANSLINGU (00:24)
[2024-06-25] MEDS: Sodium Chloride 0.65 % Nasal 44 ML SPRBTL 1 SPRAY NOSTRIL-B (01:54)
[2024-06-25] MEDS: Ondansetron ODT 4 MG TAB.RAPDIS TRANSLINGU (01:54)
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
[2024-06-25] MEDS: Cholecalciferol (Vitamin D3) 25 MCG TABLET PO (10:02)
[2024-06-25] MEDS: polyethylene glycoL 3350 17 GM POWD.PACK PO (10:02)
[2024-06-25] MEDS: Loratadine 10 MG TABLET PO (10:02)
[2024-06-25 10:03] VITALS: BP 127/54; BP 128/54; PULSE 76
[2024-06-25] MEDS: Omeprazole 20 MG CAPSULE.DR PO (10:03)
[2024-06-25] MEDS: cloNIDine HCL 0.1 MG TABLET PO (10:03)
[2024-06-25] MEDS: Lactase TABLET 1 TAB PO ×2 (10:03→12:10)
[2024-06-25 20:00] VITALS: BP 136/81; PULSE 80; TEMP 36.4; O2SAT 100
[2024-06-25] MEDS: Acetaminophen 325 MG TABLET 650 MG PO (22:56)
[2024-06-25 23:00] VITALS: BP 135/85; PULSE 69; TEMP 36.7
[2024-06-25 23:06] VITALS: BP 135/85; PULSE 69
[2024-06-26] MEDS: Melatonin 3 MG TABLET 6 MG PO (02:15)
[2024-06-26] MEDS: OLANZapine ODT 10 MG TAB.RAPDIS 20 MG TRANSLINGU (02:16)
[2024-06-26] MEDS: hydrOXYzine HCL 10 MG TABLET PO (02:16)
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
[2024-06-26 11:05] VITALS: BP 132/85; PULSE 83
[2024-06-26] MEDS: Propranolol HCL 10 MG TABLET 30 MG PO (11:05)
[2024-06-26] MEDS: LORazepam 1 MG TABLET PO ×2 (11:05→18:52)
[2024-06-26 11:06] VITALS: BP 132/85
[2024-06-26] MEDS: Cholecalciferol (Vitamin D3) 25 MCG TABLET PO (11:06)
[2024-06-26] MEDS: cloNIDine HCL 0.1 MG TABLET PO (11:06)
[2024-06-26] MEDS: Lactase TABLET 1 TAB PO (11:07)
[2024-06-26] MEDS: Loratadine 10 MG TABLET PO (11:07)
[2024-06-26] MEDS: busPIRone HCl 5 MG TABLET 15 MG PO ×2 (11:07→18:52)
[2024-06-26] MEDS: polyethylene glycoL 3350 17 GM POWD.PACK PO (11:08)
[2024-06-26 11:09] VITALS: BP 132/85; PULSE 83; TEMP 36.6; O2SAT 100
[2024-06-26] MEDS: Sodium Chloride 0.65 % Nasal 44 ML SPRBTL 1 SPRAY NOSTRIL-B ×2 (17:15→20:06)
[2024-06-26 20:00] VITALS: BP 137/77; PULSE 88; TEMP 36.4; O2SAT 99
[2024-06-26] MEDS: OLANZapine ODT 10 MG TAB.RAPDIS TRANSLINGU (20:06)
[2024-06-27] MEDS: busPIRone HCl 5 MG TABLET 15 MG PO ×3 (00:29→14:02)
[2024-06-27] MEDS: LORazepam 1 MG TABLET PO ×3 (00:30→19:08)
[2024-06-27] MEDS: hydrOXYzine HCL 10 MG TABLET PO (02:18)
[2024-06-27 02:20] VITALS: BP 131/78; PULSE 72; TEMP 36.4
[2024-06-27] MEDS: Divalproex Sodium ER 500 MG TAB.ER.24H 1000 MG PO (02:20)
[2024-06-27 02:21] VITALS: BP 131/78; PULSE 72
[2024-06-27] MEDS: Propranolol HCL 10 MG TABLET 30 MG PO ×2 (02:21→08:23)
[2024-06-27] MEDS: traZODone HCL 50 MG TABLET 150 MG PO (02:22)
[2024-06-27] MEDS: OLANZapine ODT 10 MG TAB.RAPDIS 20 MG TRANSLINGU (02:23)
[2024-06-27] MEDS: Melatonin 3 MG TABLET 6 MG PO (02:23)
[2024-06-27] MEDS: Omeprazole 20 MG CAPSULE.DR PO (07:33)
[2024-06-27 08:15] VITALS: BP 121/69; PULSE 71; RESP 20; TEMP 36.3; O2SAT 100
[2024-06-27] MEDS: Cholecalciferol (Vitamin D3) 25 MCG TABLET PO (08:25)
[2024-06-27] MEDS: Lactase TABLET 1 TAB PO (08:25)
[2024-06-27] MEDS: cloNIDine HCL 0.1 MG TABLET PO (08:25)
[2024-06-27] MEDS: Loratadine 10 MG TABLET PO (08:25)
[2024-06-27] MEDS: polyethylene glycoL 3350 17 GM POWD.PACK PO (08:27)
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
[2024-06-27 20:00] VITALS: BP 156/71; PULSE 84; RESP 16; TEMP 36.6; O2SAT 99
[2024-06-28] MEDS: Ondansetron ODT 4 MG TAB.RAPDIS TRANSLINGU (00:27)
[2024-06-28] MEDS: traZODone HCL 50 MG TABLET 150 MG PO (00:34)
--- NOTE | 2024-06-28 00:53 | PC.NURSE ---
Patient refused all HS meds.
[2024-06-28] MEDS: Albuterol Sulfate 90 MCG 8 GM INHALER 2 PUFF INHALE (01:35)
[2024-06-28] MEDS: Melatonin 3 MG TABLET 6 MG PO (03:09)
[2024-06-28] MEDS: OLANZapine ODT 10 MG TAB.RAPDIS TRANSLINGU (03:09)
[2024-06-28] MEDS: hydrOXYzine HCL 25 MG TABLET PO ×2 (03:10→09:44)
--- NOTE | 2024-06-28 03:46 | PC.NURSE ---
Patient did agree to take prn Zyprexa and Hydroxyzine and Melatonin around 0315.
--- NOTE | 2024-06-28 05:45 | PC.NURSE ---
Patient may have had a total of 2 hours of sleep. She is now taking a shower.
[2024-06-28] MEDS: Omeprazole 20 MG CAPSULE.DR PO (06:56)
--- NOTE | 2024-06-28 07:06 | PC.NURSE ---
Patient complained of stomach pain. She said she doesn't want to try Maalox or Tums; she said both medications make her vomit. Of note, she refused two doses of Lactase. yesterday
[2024-06-28 07:57] VITALS: BP 132/87; PULSE 105; RESP 18; TEMP 36.4; O2SAT 98
[2024-06-28] MEDS: Lactase TABLET 1 TAB PO (07:59)
[2024-06-28] MEDS: Cholecalciferol (Vitamin D3) 25 MCG TABLET PO (07:59)
[2024-06-28] MEDS: LORazepam 1 MG TABLET PO (07:59)
[2024-06-28] MEDS: busPIRone HCl 5 MG TABLET 15 MG PO ×2 (07:59→14:09)
[2024-06-28] MEDS: Propranolol HCL 10 MG TABLET 30 MG PO (07:59)
[2024-06-28] MEDS: polyethylene glycoL 3350 17 GM POWD.PACK PO (07:59)
[2024-06-28] MEDS: Loratadine 10 MG TABLET PO (07:59)
[2024-06-28] MEDS: cloNIDine HCL 0.1 MG TABLET PO (08:00)
[2024-06-28] MEDS: Triamcinolone Acet 0.5 % Cream 15 GM TUBE 1 APPL TOPICAL (08:03)
[2024-06-28 08:09] LABS: MANUAL DIFF FLAG NO
[2024-06-28 08:22] LABS: Valproate 24.4 mcg/mL (50.0-100.0)
[2024-06-28 08:23] LABS: Ammonia 30 umol/L (13-55)
[2024-06-28 08:26] LABS: Alanine Aminotransferase 18 U/L (0-31); Albumin Level 4.3 g/dL (3.5-5.0); Alkaline Phosphatase 38 U/L (39-117); Anion Gap 12 (12-20); Aspartate Amino Transferase 17 U/L (5-31); Bilirubin Total 0.2 mg/dL (0.0-1.0); Blood Urea Nitrogen 16 mg/dL (9-16); Calcium 10.1 mg/dL (8.4-10.2); Carbon Dioxide 28 mmol/L (22-29); Chloride 103 mmol/L (96-108); Creatinine Clr Calc Pharmacy 112.5; Estimated Glomerular Filt Rate > 60; Glucose Random 98 mg/dL (60-115); Potassium 4.1 mmol/L (3.3-5.1); Sodium 139 mmol/L (135-145); Total Protein 7.7 g/dL (6.5-8.0)
[2024-06-28 08:31] LABS: Estimated Average Glucose 117 mg/dL; Hemoglobin A1c % 5.7 % (<6.0); Total Hemoglobin (HGBA1C) 3488.4649 umol/L
[2024-06-28 08:42] LABS: Basophils Percent Auto 0.5 % (0-2); Eosinophils Absolute Auto 0.2 X10*3/uL (0.0-0.4); Eosinophils Percent Auto 3.7 % (0-4); Hematocrit 40.5 % (37.0-47.0); Hemoglobin 13.2 g/dl (12.0-16.0); Imm Gran Abs Auto 0.01 X10*3/uL (0.00-0.03); Imm Gran Pct Auto 0.2 % (0.0-0.4); Lymphocytes Absolute Auto 2.4 X10*3/uL (1.2-4.9); Lymphocytes Percent Auto 42.7 % (20-40); Mean Corpuscular HGB Conc 32.6 g/dl (31.0-35.0); Mean Corpuscular Hemoglobin 28.9 pg (27.0-33.0); Mean Corpuscular Volume 88.6 fL (80.0-98.0); Mean Platelet Volume 11.1 fL (9.4-12.3); Monocytes Absolute Auto 0.5 X10*3/uL (0.1-1.2); Neutrophils Absolute Auto 2.5 x10*3/uL (2.0-8.3); Neutrophils Percent Auto 43.9 % (45-73); Platelet Count 206 X10*3/uL (160-400); Red Blood Count 4.57 X10*6/uL (4.20-5.50); Red Cell Distribution Width 12.5 % (11.0-16.0); White Blood Count 5.7 X10*3/uL (4.8-10.8)
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
[2024-06-28] MEDS: Throat Lozenge, Medicated LOZENGE 1 LOZENGE MUCOUS MEM ×3 (14:09→20:39)
[2024-06-28] MEDS: Acetaminophen 325 MG TABLET 650 MG PO (17:42)
--- NOTE | 2024-06-28 18:33 | PC.NURSE ---
Jessica is complaining of a significantly sore throat. She is coping with cough drops and tylenol. I advised her that we should check for strep given that it is making it hard for her to eat. She states that she will refuse strep test. She systemic symptoms of sweats/chills or aches. Advised to let us know if she decides that she is willing to submit to testing.
[2024-06-28 20:00] VITALS: BP 142/80; PULSE 82; RESP 16; TEMP 36.4; O2SAT 100
[2024-06-29] MEDS: Divalproex Sodium ER 500 MG TAB.ER.24H 1000 MG PO (00:06)
[2024-06-29] MEDS: Throat Lozenge, Medicated LOZENGE 1 LOZENGE MUCOUS MEM ×4 (01:34→16:01)
[2024-06-29] MEDS: LORazepam 1 MG TABLET PO ×3 (02:43→22:03)
[2024-06-29 08:00] VITALS: BP 136/76; PULSE 88; TEMP 36.6; O2SAT 98
[2024-06-29] MEDS: Omeprazole 20 MG CAPSULE.DR PO (08:12)
[2024-06-29] MEDS: Cholecalciferol (Vitamin D3) 25 MCG TABLET PO (08:12)
[2024-06-29] MEDS: polyethylene glycoL 3350 17 GM POWD.PACK PO (08:12)
[2024-06-29] MEDS: Propranolol HCL 10 MG TABLET 30 MG PO ×2 (08:12→22:02)
[2024-06-29] MEDS: cloNIDine HCL 0.1 MG TABLET PO (08:13)
[2024-06-29] MEDS: Loratadine 10 MG TABLET PO (08:13)
[2024-06-29] MEDS: Lactase TABLET 1 TAB PO (08:13)
[2024-06-29] MEDS: busPIRone HCl 5 MG TABLET 15 MG PO ×3 (08:13→22:02)
[2024-06-29 08:20] VITALS: BP 124/81; PULSE 122; TEMP 36.8; O2SAT 100
[2024-06-29] MEDS: Ondansetron ODT 4 MG TAB.RAPDIS TRANSLINGU (08:32)
[2024-06-29 09:20] VITALS: PULSE 94
[2024-06-29] MEDS: hydrOXYzine HCL 25 MG TABLET PO (10:42)
[2024-06-29] MEDS: OLANZapine ODT 10 MG TAB.RAPDIS TRANSLINGU (10:43)
[2024-06-29] MEDS: Acetaminophen 325 MG TABLET 650 MG PO (17:26)
[2024-06-29] MEDS: diphenhydrAMINE HCL 25 MG CAPSULE PO ×2 (17:27→23:44)
--- NOTE | 2024-06-29 21:13 | PC.NURSE ---
At 1805, On 06/29 at 1805, pt? requested to speak with t/w via a note. During the meeting, pt appeared anxious and stated, ?I wanted to get something off my chest, but I just can?t say it.? Pt did not appear to become less anxious and did not speak about the topic for twenty minutes. T/w suggested that pt could write down her concern if that were an easier method of communication. Pt agreed. At 193, pt handed a second note to t/w which read, ?Sukhjinder, Uhm?.Sorry I estephania?. I was very anxious?. Uhm I?. I just?. Remember I said that I had a crush on a female staff at the other place I was at?.... Uhm that estephania changed?.Uhm?.I know that I can?t but?.I?.I estephania have a crush on you?. And again I know that I can?t but?. I just?. I?. when we talk I feel so comfortable and safe around you?. I trust you because your so caring and very kind?. Uhm?.I hope that I didn?t ruin things I just?. I couldn?t hide my feelings anymore?. I?m so sorry, I really am?. *tries not to cry*? T/w informed the auditor in charge. With the auditor in charge present, t/w?s professional role and boundaries. T/w informed the clinical coordinator.
[2024-06-29 21:40] VITALS: BP 136/74; PULSE 105; RESP 18; TEMP 36.6; O2SAT 100
[2024-06-29] MEDS: Divalproex Sodium ER 500 MG TAB.ER.24H 1500 MG PO (21:57)
[2024-06-29] MEDS: traZODone HCL 50 MG TABLET 150 MG PO (22:02)
[2024-06-29] MEDS: OLANZapine ODT 10 MG TAB.RAPDIS 20 MG TRANSLINGU (22:03)
[2024-06-29] MEDS: Sodium Chloride 0.65 % Nasal 44 ML SPRBTL 1 SPRAY NOSTRIL-B (23:38)
[2024-06-29] MEDS: Fluticasone Propionate Nasal 16 GM SPRAY 2 SPRAY NOSTRIL-B (23:38)
[2024-06-30] MEDS: Throat Lozenge, Medicated LOZENGE 1 LOZENGE MUCOUS MEM ×5 (02:08→22:59)
[2024-06-30] MEDS: Acetaminophen 325 MG TABLET 650 MG PO ×3 (06:58→21:56)
[2024-06-30] MEDS: Omeprazole 20 MG CAPSULE.DR PO (06:58)
[2024-06-30] MEDS: polyethylene glycoL 3350 17 GM POWD.PACK PO (09:10)
[2024-06-30 09:18] VITALS: BP 163/80; PULSE 107; TEMP 36.9; O2SAT 100
[2024-06-30] MEDS: cloNIDine HCL 0.1 MG TABLET PO (09:19)
[2024-06-30] MEDS: Cholecalciferol (Vitamin D3) 25 MCG TABLET PO (09:19)
[2024-06-30] MEDS: Propranolol HCL 10 MG TABLET 30 MG PO ×2 (09:19→21:56)
[2024-06-30] MEDS: Lactase TABLET 1 TAB PO ×3 (09:20→17:08)
[2024-06-30] MEDS: Loratadine 10 MG TABLET PO (09:20)
[2024-06-30] MEDS: LORazepam 1 MG TABLET PO ×2 (09:22→21:56)
[2024-06-30] MEDS: busPIRone HCl 5 MG TABLET 15 MG PO ×3 (09:22→21:55)
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
[2024-06-30] MEDS: Ibuprofen 600 MG TABLET PO (17:07)
[2024-06-30 20:00] VITALS: BP 133/80; PULSE 82; RESP 18; TEMP 36.4; O2SAT 99
[2024-06-30] MEDS: Divalproex Sodium ER 500 MG TAB.ER.24H 1500 MG PO (21:54)
[2024-06-30] MEDS: traZODone HCL 50 MG TABLET 150 MG PO (21:55)
[2024-06-30] MEDS: diphenhydrAMINE HCL 25 MG CAPSULE 50 MG PO (21:55)
[2024-06-30] MEDS: OLANZapine ODT 10 MG TAB.RAPDIS 20 MG TRANSLINGU (21:55)
[2024-06-30] MEDS: Fluticasone Propionate Nasal 16 GM SPRAY 2 SPRAY NOSTRIL-B (22:57)
[2024-07-01] MEDS: Ibuprofen 600 MG TABLET PO ×2 (02:19→16:14)
[2024-07-01] MEDS: diphenhydrAMINE HCL 25 MG CAPSULE PO (02:19)
[2024-07-01] MEDS: Throat Lozenge, Medicated LOZENGE 1 LOZENGE MUCOUS MEM ×4 (02:19→23:05)
[2024-07-01 08:00] VITALS: BP 134/75; PULSE 81; RESP 16; TEMP 36.4; O2SAT 100
[2024-07-01] MEDS: busPIRone HCl 5 MG TABLET 15 MG PO ×2 (16:00→22:24)
[2024-07-01] MEDS: Loratadine 10 MG TABLET PO (16:14)
[2024-07-01 20:00] VITALS: BP 133/84; PULSE 94; TEMP 36.8; O2SAT 96
[2024-07-01] MEDS: Divalproex Sodium ER 500 MG TAB.ER.24H 1500 MG PO (22:13)
[2024-07-01] MEDS: OLANZapine ODT 10 MG TAB.RAPDIS 20 MG TRANSLINGU (22:14)
[2024-07-01 22:23] VITALS: BP 136/61; PULSE 94
[2024-07-01] MEDS: Propranolol HCL 10 MG TABLET 30 MG PO (22:23)
[2024-07-02] MEDS: diphenhydrAMINE HCL 25 MG CAPSULE 50 MG PO (00:39)
[2024-07-02] MEDS: traZODone HCL 50 MG TABLET 150 MG PO (00:40)
[2024-07-02] MEDS: Melatonin 3 MG TABLET 6 MG PO (00:40)
[2024-07-02] MEDS: LORazepam 1 MG TABLET PO ×2 (00:41→09:53)
[2024-07-02] MEDS: hydrOXYzine HCL 10 MG TABLET PO (00:41)
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
[2024-07-02] MEDS: Cholecalciferol (Vitamin D3) 25 MCG TABLET PO (09:53)
[2024-07-02 09:54] VITALS: BP 126/88; PULSE 77
[2024-07-02] MEDS: Propranolol HCL 10 MG TABLET 30 MG PO (09:54)
[2024-07-02] MEDS: busPIRone HCl 5 MG TABLET 15 MG PO (09:54)
[2024-07-02 09:55] VITALS: BP 126/88; PULSE 76; RESP 20; TEMP 36.3; O2SAT 97
[2024-07-02 09:57] VITALS: BP 126/88
[2024-07-02] MEDS: polyethylene glycoL 3350 17 GM POWD.PACK PO (09:57)
[2024-07-02] MEDS: Loratadine 10 MG TABLET PO (09:57)
[2024-07-02] MEDS: Omeprazole 20 MG CAPSULE.DR PO (09:57)
[2024-07-02] MEDS: cloNIDine HCL 0.1 MG TABLET PO (09:57)
[2024-07-02] MEDS: Throat Lozenge, Medicated LOZENGE 1 LOZENGE MUCOUS MEM (17:35)
[2024-07-02 20:00] VITALS: BP 142/72; PULSE 100; RESP 16; TEMP 36.6; O2SAT 100
[2024-07-02] MEDS: Divalproex Sodium ER 500 MG TAB.ER.24H 1500 MG PO (22:19)
[2024-07-02] MEDS: OLANZapine ODT 10 MG TAB.RAPDIS 20 MG TRANSLINGU (22:20)
[2024-07-03] MEDS: diphenhydrAMINE HCL 25 MG CAPSULE PO (01:32)
[2024-07-03] MEDS: LORazepam 1 MG TABLET PO ×3 (01:33→22:12)
[2024-07-03] MEDS: busPIRone HCl 5 MG TABLET 15 MG PO ×4 (02:29→22:14)
[2024-07-03] MEDS: traZODone HCL 50 MG TABLET 150 MG PO ×2 (02:31→22:18)
[2024-07-03 02:33] VITALS: BP 128/67; PULSE 76
[2024-07-03] MEDS: Propranolol HCL 10 MG TABLET 30 MG PO ×3 (02:33→22:14)
[2024-07-03] MEDS: Melatonin 3 MG TABLET 6 MG PO ×2 (02:35→22:13)
[2024-07-03] MEDS: hydrOXYzine HCL 10 MG TABLET PO (02:39)
[2024-07-03] MEDS: Albuterol Sulfate 90 MCG 8 GM INHALER 2 PUFF INHALE (02:43)
[2024-07-03] MEDS: Acetaminophen 325 MG TABLET 650 MG PO (03:30)
[2024-07-03 08:27] VITALS: BP 125/75; PULSE 79; RESP 16; TEMP 36.2; O2SAT 97
[2024-07-03] MEDS: polyethylene glycoL 3350 17 GM POWD.PACK PO (09:18)
[2024-07-03] MEDS: Cholecalciferol (Vitamin D3) 25 MCG TABLET PO (09:19)
[2024-07-03] MEDS: cloNIDine HCL 0.1 MG TABLET PO (09:19)
[2024-07-03] MEDS: Loratadine 10 MG TABLET PO (09:19)
[2024-07-03] MEDS: Lactase TABLET 1 TAB PO (09:20)
[2024-07-03] MEDS: Omeprazole 20 MG CAPSULE.DR PO (09:20)
[2024-07-03 20:00] VITALS: BP 140/83; PULSE 76; RESP 16; TEMP 36.4; O2SAT 99
[2024-07-03] MEDS: OLANZapine ODT 10 MG TAB.RAPDIS 20 MG TRANSLINGU (20:58)
[2024-07-03] MEDS: Divalproex Sodium ER 500 MG TAB.ER.24H 1500 MG PO (20:58)
[2024-07-03 22:14] VITALS: BP 123/78; PULSE 81
[2024-07-03] MEDS: Sodium Chloride 0.65 % Nasal 44 ML SPRBTL 1 SPRAY NOSTRIL-B (22:22)
[2024-07-03] MEDS: Fluticasone Propionate Nasal 16 GM SPRAY 2 SPRAY NOSTRIL-B (22:24)
[2024-07-04] MEDS: Omeprazole 20 MG CAPSULE.DR PO (07:11)
[2024-07-04 08:07] VITALS: BP 125/72; PULSE 78; TEMP 36.4; O2SAT 100
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
[2024-07-04] MEDS: LORazepam 1 MG TABLET PO ×2 (08:39→20:56)
[2024-07-04] MEDS: polyethylene glycoL 3350 17 GM POWD.PACK PO (08:40)
[2024-07-04] MEDS: cloNIDine HCL 0.1 MG TABLET PO (08:40)
[2024-07-04] MEDS: Loratadine 10 MG TABLET PO (08:40)
[2024-07-04] MEDS: Lactase TABLET 1 TAB PO (08:40)
[2024-07-04] MEDS: busPIRone HCl 5 MG TABLET 15 MG PO ×3 (08:40→20:57)
[2024-07-04] MEDS: Cholecalciferol (Vitamin D3) 25 MCG TABLET PO (08:40)
[2024-07-04 12:57] LABS: Ammonia 41 umol/L (13-55)
[2024-07-04 13:04] LABS: Valproate 63.9 mcg/mL (50.0-100.0)
[2024-07-04 13:07] LABS: Alanine Aminotransferase 10 U/L (0-31); Albumin Level 3.7 g/dL (3.5-5.0); Alkaline Phosphatase 37 U/L (39-117); Aspartate Amino Transferase 11 U/L (5-31); Bilirubin Direct < 0.2 mg/dL (0.0-0.5); Bilirubin Total 0.1 mg/dL (0.0-1.0)
[2024-07-04 20:00] VITALS: BP 134/86; PULSE 104; TEMP 36.7; O2SAT 99
[2024-07-04] MEDS: Acetaminophen 325 MG TABLET 650 MG PO (20:55)
[2024-07-04 20:56] VITALS: BP 134/86; PULSE 104
[2024-07-04] MEDS: Propranolol HCL 10 MG TABLET 30 MG PO (20:56)
[2024-07-04] MEDS: Divalproex Sodium ER 500 MG TAB.ER.24H 1500 MG PO (21:55)
[2024-07-04] MEDS: OLANZapine ODT 10 MG TAB.RAPDIS 20 MG TRANSLINGU (21:57)
[2024-07-05] MEDS: hydrOXYzine HCL 10 MG TABLET PO (01:06)
[2024-07-05] MEDS: Melatonin 3 MG TABLET 6 MG PO (01:09)
[2024-07-05] MEDS: Omeprazole 20 MG CAPSULE.DR PO (06:55)
[2024-07-05 10:26] VITALS: BP 159/71; PULSE 73
[2024-07-05] MEDS: polyethylene glycoL 3350 17 GM POWD.PACK PO (10:26)
[2024-07-05] MEDS: busPIRone HCl 5 MG TABLET 15 MG PO (10:26)
[2024-07-05] MEDS: Propranolol HCL 10 MG TABLET 30 MG PO (10:26)
[2024-07-05 10:27] VITALS: BP 159/71
[2024-07-05] MEDS: cloNIDine HCL 0.1 MG TABLET PO (10:27)
[2024-07-05] MEDS: Cholecalciferol (Vitamin D3) 25 MCG TABLET PO (10:27)
[2024-07-05] MEDS: Loratadine 10 MG TABLET PO (10:28)
[2024-07-05] MEDS: LORazepam 1 MG TABLET PO ×2 (10:28→20:09)
[2024-07-05 10:30] VITALS: BP 159/71; PULSE 75; RESP 20; TEMP 36.4; O2SAT 98
[2024-07-05 20:00] VITALS: RESP 18
[2024-07-05] MEDS: Divalproex Sodium ER 500 MG TAB.ER.24H 1500 MG PO (22:11)
[2024-07-05] MEDS: OLANZapine ODT 10 MG TAB.RAPDIS 20 MG TRANSLINGU (22:11)
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
[2024-07-06] MEDS: Omeprazole 20 MG CAPSULE.DR PO (07:18)
[2024-07-06 08:00] VITALS: BP 130/74; PULSE 87; RESP 20; TEMP 36.3; O2SAT 100
[2024-07-06 08:06] VITALS: BP 130/74; PULSE 87
[2024-07-06] MEDS: Propranolol HCL 10 MG TABLET 30 MG PO ×2 (08:06→23:27)
[2024-07-06] MEDS: Lactase TABLET 1 TAB PO (08:06)
[2024-07-06] MEDS: LORazepam 1 MG TABLET PO ×2 (08:07→23:27)
[2024-07-06] MEDS: Cholecalciferol (Vitamin D3) 25 MCG TABLET PO (08:07)
[2024-07-06] MEDS: busPIRone HCl 5 MG TABLET 15 MG PO ×2 (08:07→23:28)
[2024-07-06 08:08] VITALS: BP 130/74
[2024-07-06] MEDS: Loratadine 10 MG TABLET PO (08:08)
[2024-07-06] MEDS: cloNIDine HCL 0.1 MG TABLET PO (08:08)
[2024-07-06] MEDS: Throat Lozenge, Medicated LOZENGE 1 LOZENGE MUCOUS MEM ×2 (09:25→16:55)
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
[2024-07-06 20:00] VITALS: BP 129/69; PULSE 91; RESP 18; TEMP 37; O2SAT 98
[2024-07-06] MEDS: Divalproex Sodium ER 500 MG TAB.ER.24H 1500 MG PO (21:54)
[2024-07-06] MEDS: OLANZapine ODT 10 MG TAB.RAPDIS 20 MG TRANSLINGU (21:55)
[2024-07-06] MEDS: Acetaminophen 325 MG TABLET 650 MG PO (22:17)
[2024-07-06 23:27] VITALS: BP 132/74
[2024-07-06] MEDS: Melatonin 3 MG TABLET 6 MG PO (23:28)
[2024-07-06] MEDS: hydrOXYzine HCL 10 MG TABLET PO (23:28)
[2024-07-06] MEDS: traZODone HCL 50 MG TABLET 150 MG PO (23:28)
[2024-07-07] MEDS: Magnesium Hydrox/Alum Hydrox 30 ML ORAL.SUSP PO (03:31)
[2024-07-07] MEDS: Throat Lozenge, Medicated LOZENGE 1 LOZENGE MUCOUS MEM (03:52)
--- NOTE | 2024-07-07 06:53 | PC.NURSE ---
During overnight shift patient was provided 4 ID bands, each time patient had a reason for why pt had removed/torn/crushed band. Pt laughed when RN discussed importance of correct identification, states I threw them away already . Pt verbalized 2 identifiers during each med administration, unable to locate ID bands visually in pt room or belongings at this time.
[2024-07-07 08:00] VITALS: BP 108/58; PULSE 77; RESP 16; TEMP 36.5; O2SAT 97
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
[2024-07-07 13:14] VITALS: BP 133/77; PULSE 95
[2024-07-07] MEDS: LORazepam 1 MG TABLET PO ×2 (13:14→23:00)
[2024-07-07] MEDS: Propranolol HCL 10 MG TABLET 30 MG PO ×2 (13:14→22:22)
[2024-07-07 13:15] VITALS: BP 133/77
[2024-07-07] MEDS: Cholecalciferol (Vitamin D3) 25 MCG TABLET PO (13:15)
[2024-07-07] MEDS: cloNIDine HCL 0.1 MG TABLET PO (13:15)
[2024-07-07] MEDS: Loratadine 10 MG TABLET PO (13:15)
[2024-07-07] MEDS: busPIRone HCl 5 MG TABLET 15 MG PO ×2 (13:16→17:50)
[2024-07-07] MEDS: Omeprazole 20 MG CAPSULE.DR PO (13:16)
[2024-07-07 19:47] VITALS: BP 123/78; PULSE 82; RESP 14; TEMP 36.6; O2SAT 97
[2024-07-07 22:22] VITALS: BP 117/70; PULSE 64
[2024-07-07] MEDS: busPIRone HCl 10 MG TABLET PO (22:22)
[2024-07-07] MEDS: Divalproex Sodium ER 500 MG TAB.ER.24H 1500 MG PO (22:23)
[2024-07-07] MEDS: Acetaminophen 325 MG TABLET 650 MG PO (22:59)
[2024-07-07] MEDS: Melatonin 3 MG TABLET 6 MG PO (22:59)
[2024-07-07] MEDS: hydrOXYzine HCL 10 MG TABLET PO (23:00)
[2024-07-07] MEDS: OLANZapine ODT 10 MG TAB.RAPDIS 20 MG TRANSLINGU (23:00)
[2024-07-07] MEDS: traZODone HCL 50 MG TABLET 150 MG PO (23:00)
[2024-07-07] MEDS: Sodium Chloride 0.65 % Nasal 44 ML SPRBTL 1 SPRAY NOSTRIL-B (23:03)
[2024-07-07] MEDS: Fluticasone Propionate Nasal 16 GM SPRAY 2 SPRAY NOSTRIL-B (23:03)
--- NOTE | 2024-07-08 10:41 | PC.NURSE ---
pt was approached by TW and MD HANKINS for daily meeting. Pt refused to meet with RN or and declined scheduled medication. Pt instructed she could refuse her morning scheduled medication but was told she would have to take her evening court ordered medication or receive the IM backup.. Pt yelled, i'm not taking either . Pt instructed that security would then be called if she declined. Pt declined to further engage with TW. TW told pt if she changed her mind and wanted her take her scheduled morning medications she could approach TW. Pt is currently in room with blanket over her head and remains on 15min checks for safety
--- NOTE | 2024-07-08 10:53 | PC.NURSE ---
late entry: pt refused to wake for vital assessment
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
[2024-07-08 12:19] VITALS: BP 126/76; PULSE 98
[2024-07-08] MEDS: Propranolol HCL 10 MG TABLET 30 MG PO ×2 (12:19→20:37)
[2024-07-08] MEDS: busPIRone HCl 10 MG TABLET PO ×2 (12:19→20:38)
[2024-07-08] MEDS: Cholecalciferol (Vitamin D3) 25 MCG TABLET PO (12:19)
[2024-07-08] MEDS: LORazepam 1 MG TABLET PO ×2 (12:19→20:38)
[2024-07-08] MEDS: polyethylene glycoL 3350 17 GM POWD.PACK PO (12:19)
[2024-07-08] MEDS: Omeprazole 20 MG CAPSULE.DR PO (12:19)
[2024-07-08] MEDS: Loratadine 10 MG TABLET PO (12:19)
[2024-07-08 12:20] VITALS: BP 126/76
[2024-07-08] MEDS: cloNIDine HCL 0.1 MG TABLET PO (12:20)
[2024-07-08 12:25] VITALS: BP 126/76; PULSE 98; RESP 16; TEMP 36.8; O2SAT 100
--- NOTE | 2024-07-08 12:27 | PC.NURSE ---
pt approached tW and apologized for her behavior early in the shift. She accepted her medications, which were initially refused, and allowed for vitals assessment. Pt is currently in good spirits and eating lunch.
[2024-07-08 20:00] VITALS: BP 120/61; PULSE 83; TEMP 37.1; O2SAT 98
[2024-07-08 20:37] VITALS: BP 120/61; PULSE 83
[2024-07-08] MEDS: Divalproex Sodium ER 500 MG TAB.ER.24H 1500 MG PO (20:37)
[2024-07-08] MEDS: Melatonin 3 MG TABLET 6 MG PO (20:37)
[2024-07-08] MEDS: traZODone HCL 50 MG TABLET 150 MG PO (20:38)
[2024-07-08] MEDS: OLANZapine ODT 10 MG TAB.RAPDIS 20 MG TRANSLINGU (20:38)
[2024-07-08] MEDS: hydrOXYzine HCL 10 MG TABLET PO (20:38)
[2024-07-08] MEDS: Ibuprofen 600 MG TABLET PO (20:47)
[2024-07-08] MEDS: Acetaminophen 325 MG TABLET 650 MG PO (23:05)
[2024-07-09] MEDS: Acetaminophen 325 MG TABLET 650 MG PO ×2 (05:58→17:11)
[2024-07-09] MEDS: Omeprazole 20 MG CAPSULE.DR PO (05:59)
[2024-07-09] MEDS: Albuterol Sulfate 90 MCG 8 GM INHALER 2 PUFF INHALE (06:22)
[2024-07-09 08:00] VITALS: BP 132/76; PULSE 88; RESP 18; TEMP 37.1; O2SAT 97
[2024-07-09] MEDS: busPIRone HCl 10 MG TABLET PO ×2 (08:33→14:47)
[2024-07-09] MEDS: Lactase TABLET 1 TAB PO ×2 (08:33→16:58)
[2024-07-09] MEDS: Cholecalciferol (Vitamin D3) 25 MCG TABLET PO (08:33)
[2024-07-09] MEDS: polyethylene glycoL 3350 17 GM POWD.PACK PO (08:33)
[2024-07-09] MEDS: Loratadine 10 MG TABLET PO (08:33)
[2024-07-09] MEDS: Propranolol HCL 10 MG TABLET 30 MG PO (08:33)
[2024-07-09] MEDS: cloNIDine HCL 0.1 MG TABLET PO (08:34)
[2024-07-09] MEDS: LORazepam 1 MG TABLET PO (08:34)
[2024-07-09] MEDS: Ibuprofen 600 MG TABLET PO (09:10)
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
[2024-07-09 20:00] VITALS: BP 117/62; PULSE 90; RESP 18; TEMP 36.6; O2SAT 98
[2024-07-09] MEDS: OLANZapine ODT 10 MG TAB.RAPDIS 20 MG TRANSLINGU (22:07)
[2024-07-09] MEDS: Divalproex Sodium ER 500 MG TAB.ER.24H 1500 MG PO (22:07)
--- NOTE | 2024-07-10 | ECG_ITS ---
Test Reason : chest pain Blood Pressure : / mmHG Vent. Rate : 068 BPM Atrial Rate : 068 BPM P-R Int : 144 ms QRS Dur : 078 ms QT Int : 380 ms P-R-T Axes : 044 035 049 degrees QTc Int : 404 ms Sinus rhythm with marked sinus arrhythmia Septal infarct (cited on or before 07-JUN-2024) Abnormal ECG When compared with ECG of 07-JUN-2024 02:26, No significant change was found Referred By: Yevgeniy Lopez Electronically Signed By:NITZA WOLFF MD
[2024-07-10 05:33] VITALS: BP 146/87; PULSE 79
[2024-07-10] MEDS: Propranolol HCL 10 MG TABLET 30 MG PO ×2 (05:33→21:17)
[2024-07-10 07:51] VITALS: BP 127/80; PULSE 82; RESP 18; TEMP 36.6; O2SAT 99
[2024-07-10] MEDS: cloNIDine HCL 0.1 MG TABLET PO (08:24)
[2024-07-10] MEDS: hydrOXYzine HCL 25 MG TABLET PO (08:24)
[2024-07-10] MEDS: Omeprazole 20 MG CAPSULE.DR PO (08:24)
[2024-07-10] MEDS: LORazepam 1 MG TABLET PO ×2 (08:24→23:19)
[2024-07-10] MEDS: busPIRone HCl 10 MG TABLET PO ×3 (08:24→21:19)
[2024-07-10] MEDS: Lactase TABLET 1 TAB PO (08:24)
[2024-07-10] MEDS: Cholecalciferol (Vitamin D3) 25 MCG TABLET PO (08:25)
[2024-07-10] MEDS: polyethylene glycoL 3350 17 GM POWD.PACK PO (08:26)
[2024-07-10] MEDS: Loratadine 10 MG TABLET PO (08:28)
[2024-07-10] MEDS: OLANZapine ODT 10 MG TAB.RAPDIS TRANSLINGU (09:00)
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
[2024-07-10 21:10] VITALS: BP 139/88; PULSE 82; TEMP 36.8; O2SAT 95
[2024-07-10] MEDS: Acetaminophen 325 MG TABLET 650 MG PO (21:16)
[2024-07-10 21:17] VITALS: BP 139/88; PULSE 82
[2024-07-10] MEDS: Divalproex Sodium ER 500 MG TAB.ER.24H 1500 MG PO (21:18)
[2024-07-10] MEDS: OLANZapine ODT 10 MG TAB.RAPDIS 20 MG TRANSLINGU (21:19)
[2024-07-10 23:45] VITALS: BP 127/84; PULSE 80; TEMP 37; O2SAT 98
[2024-07-11] MEDS: Melatonin 3 MG TABLET 6 MG PO ×2 (02:25→23:27)
[2024-07-11] MEDS: hydrOXYzine HCL 10 MG TABLET PO ×2 (02:25→23:27)
[2024-07-11] MEDS: traZODone HCL 50 MG TABLET 150 MG PO ×2 (02:25→23:27)
[2024-07-11] MEDS: Magnesium Hydrox/Alum Hydrox 30 ML ORAL.SUSP PO (07:11)
[2024-07-11] MEDS: Omeprazole 20 MG CAPSULE.DR PO (07:11)
[2024-07-11 08:00] VITALS: BP 103/55; PULSE 77; RESP 20; TEMP 36.4; O2SAT 97
[2024-07-11] MEDS: busPIRone HCl 10 MG TABLET PO ×3 (08:25→23:27)
[2024-07-11] MEDS: LORazepam 1 MG TABLET PO ×2 (08:25→23:28)
[2024-07-11] MEDS: Lactase TABLET 1 TAB PO (08:25)
[2024-07-11] MEDS: Cholecalciferol (Vitamin D3) 25 MCG TABLET PO (08:26)
[2024-07-11] MEDS: cloNIDine HCL 0.1 MG TABLET PO (08:26)
[2024-07-11] MEDS: Propranolol HCL 10 MG TABLET 30 MG PO ×2 (08:26→23:27)
[2024-07-11] MEDS: Loratadine 10 MG TABLET PO (08:27)
[2024-07-11] MEDS: hydrOXYzine HCL 25 MG TABLET PO (09:34)
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
[2024-07-11] MEDS: Ibuprofen 600 MG TABLET PO (18:03)
[2024-07-11 19:51] VITALS: BP 137/79; PULSE 81; TEMP 36.6; O2SAT 100
[2024-07-11] MEDS: OLANZapine ODT 10 MG TAB.RAPDIS 20 MG TRANSLINGU (21:57)
[2024-07-11] MEDS: Divalproex Sodium ER 500 MG TAB.ER.24H 1500 MG PO (21:57)
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
[2024-07-12 08:00] VITALS: BP 99/50; PULSE 85; RESP 18; TEMP 36.8; O2SAT 97
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
[2024-07-12 10:06] VITALS: BP 99/50; PULSE 86
[2024-07-12] MEDS: polyethylene glycoL 3350 17 GM POWD.PACK PO (10:06)
[2024-07-12] MEDS: Propranolol HCL 10 MG TABLET 30 MG PO ×2 (10:06→21:04)
[2024-07-12] MEDS: Lactase TABLET 1 TAB PO ×2 (10:07→16:31)
[2024-07-12] MEDS: Cholecalciferol (Vitamin D3) 25 MCG TABLET PO (10:07)
[2024-07-12] MEDS: Omeprazole 20 MG CAPSULE.DR PO (10:07)
[2024-07-12] MEDS: Loratadine 10 MG TABLET PO (10:08)
[2024-07-12] MEDS: LORazepam 0.5 MG TABLET PO ×2 (10:08→21:03)
[2024-07-12] MEDS: busPIRone HCl 5 MG TABLET PO ×3 (10:08→21:05)
[2024-07-12 16:31] VITALS: BP 133/91
[2024-07-12] MEDS: cloNIDine HCL 0.1 MG TABLET PO (16:31)
[2024-07-12 20:00] VITALS: BP 118/72; PULSE 79; TEMP 36.6; O2SAT 99
[2024-07-12] MEDS: Divalproex Sodium ER 500 MG TAB.ER.24H 1500 MG PO (21:03)
[2024-07-12 21:04] VITALS: BP 118/72; PULSE 79
[2024-07-12] MEDS: OLANZapine ODT 10 MG TAB.RAPDIS 20 MG TRANSLINGU (21:10)
[2024-07-12] MEDS: Acetaminophen 325 MG TABLET 650 MG PO (22:18)
[2024-07-13] MEDS: Melatonin 3 MG TABLET 6 MG PO ×2 (01:44→23:58)
[2024-07-13] MEDS: traZODone HCL 50 MG TABLET 150 MG PO ×2 (01:44→23:58)
[2024-07-13] MEDS: hydrOXYzine HCL 50 MG TABLET PO (01:48)
[2024-07-13] MEDS: Sodium Chloride 0.65 % Nasal 44 ML SPRBTL 1 SPRAY NOSTRIL-B (03:13)
[2024-07-13 08:00] VITALS: BP 112/55; PULSE 95; RESP 18; TEMP 36.9; O2SAT 95
[2024-07-13] MEDS: Loratadine 10 MG TABLET PO (09:52)
[2024-07-13] MEDS: Cholecalciferol (Vitamin D3) 25 MCG TABLET PO (09:52)
[2024-07-13] MEDS: Omeprazole 20 MG CAPSULE.DR PO (09:52)
[2024-07-13] MEDS: LORazepam 0.5 MG TABLET PO ×2 (09:52→21:55)
[2024-07-13] MEDS: Lactase TABLET 1 TAB PO ×2 (09:52→12:06)
[2024-07-13] MEDS: polyethylene glycoL 3350 17 GM POWD.PACK PO (09:53)
[2024-07-13] MEDS: busPIRone HCl 5 MG TABLET PO ×2 (09:53→23:59)
[2024-07-13 11:27] VITALS: BP 134/87; PULSE 93
[2024-07-13] MEDS: Propranolol HCL 10 MG TABLET 30 MG PO ×2 (11:27→23:58)
[2024-07-13] MEDS: cloNIDine HCL 0.1 MG TABLET PO (11:32)
[2024-07-13 20:00] VITALS: BP 131/80; PULSE 84; TEMP 36.9; O2SAT 99
[2024-07-13] MEDS: Divalproex Sodium ER 500 MG TAB.ER.24H 1500 MG PO (21:34)
[2024-07-13] MEDS: OLANZapine ODT 10 MG TAB.RAPDIS 20 MG TRANSLINGU (21:35)
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
[2024-07-13 23:58] VITALS: BP 118/68; PULSE 86
--- NOTE | 2024-07-14 00:37 | PC.NURSE ---
At approximately 2000, this patient was on the patient phone being rather loud, but not screaming. This sports book writer was in the medication room with the top half of the door open, with both other nurses in the medication room. This sports book writer stated that's Renasha on the phone, when the other nurses noted the raised voice. This patient overheard, as she was getting off the phone, and yelled into the medication room I hear you talking about me! Stop talking about me! She then went to group room B to collect herself. At approximately 2100, this sports book writer approached this patient and asked if the patient was ready to take her nighttime medications. The patient would not meet this sports book writer's eyes, but nodded her head up and down to say yes nonverbally. This sports book writer noted that the patient was journaling. This sports book writer administered some medications (the patient would not take all of her scheduled medications, stating I'm not ready to go to bed yet. I like to go to bed late. ) As the patient spoke more and met this sports book writer's eyes, this sports book writer took the opportunity to explain what the patient had overheard earlier. This sports book writer also praised the patient for journaling, stating I'm glad to see you're using good coping skills. Journaling is really helpful. The patient seemed to be more receptive at that time to speaking further, so this sports book writer reassured the patient that negative emotions like anger are normal, and using a tool/skill like journaling helps people to express themselves without outbursts or hurting the feelings of others. The patient was apologetic at this time and this sports book writer accepted her apology. At approximately 2144, this sports book writer was approached again by this patient. The patient said I really wanted to talk to ([facility] about the letter I wrote him. I think he's mad at me. This sports book writer was aware that it has been documented that this patient has romantic feelings toward this [facility]. This sports book writer explained that as staff, we have a responsibility to maintain professional boundaries with patients, and that while no one was angry with her, boundaries need to be clearly set. The patient nodded, but continued to ask this sports book writer if she could talk to Sukhjinder. This sports book writer is concerned that this patient seems to be developing an unhealthy attachment to [facility], especially given that she has been spoken to before regarding this issue and professional boundaries. The patient has continued to be demanding a great deal of attention from this sports book writer this evening, and this sports book writer has had to set limits as to how much time can be spent talking to the patient. The patient does not seem to understand that staff give professional care and are not meant to be her friends.
[2024-07-14] MEDS: Omeprazole 20 MG CAPSULE.DR PO (07:02)
[2024-07-14 07:47] VITALS: BP 143/99; PULSE 72; TEMP 36.4; O2SAT 100
[2024-07-14] MEDS: polyethylene glycoL 3350 17 GM POWD.PACK PO (08:43)
[2024-07-14] MEDS: Propranolol HCL 10 MG TABLET 30 MG PO (08:44)
[2024-07-14] MEDS: busPIRone HCl 5 MG TABLET PO (08:44)
[2024-07-14] MEDS: LORazepam 0.5 MG TABLET PO (08:44)
[2024-07-14] MEDS: cloNIDine HCL 0.1 MG TABLET PO (08:44)
[2024-07-14] MEDS: Cholecalciferol (Vitamin D3) 25 MCG TABLET PO (08:45)
[2024-07-14] MEDS: Loratadine 10 MG TABLET PO (08:45)
[2024-07-14] MEDS: Lactase TABLET 1 TAB PO (08:45)
[2024-07-14 20:00] VITALS: BP 136/84; PULSE 79; TEMP 36.4; O2SAT 98
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
[2024-07-14] MEDS: Divalproex Sodium ER 500 MG TAB.ER.24H 1500 MG PO (22:05)
[2024-07-14] MEDS: OLANZapine ODT 10 MG TAB.RAPDIS 20 MG TRANSLINGU (22:06)
--- NOTE | 2024-07-15 01:53 | PC.NURSE ---
At approximately 2130, this insurance writer approached this patient in group room B, offering night medications and attempting shift assessment. The patient stated I don't want my meds! and would not face this insurance writer. This insurance writer educated patient, stating You have some court ordered medications. If you won't take those by mouth, there is an IM...an injection...ordered. Patient yelled I won't take a fucking needle, either! I don't want any of it! This insurance writer approached charge nurse Hannah Salas, who approached the patient as well to educate the patient and offer medications by mouth or the alternative of injection. Patient told Nurse Maritza Get the fuck out of here, fatass! I'm not taking any of it! I don't care! This insurance writer and charge nurse Maritza withdrew at that time. IM injection of court ordered medications was prepared, and oral form of same was on hand. Security was called to assist. When security arrived, staff attempted to reapproach patient in group room B. Vinhalcovemikaela had blocked the door with a heavy chair. The door was pushed inward enough to gain access. Patient was once again offered the choice: oral medications or an IM injection. Nurse Phil Curry was able to convince this patient to take her court ordered medications by mouth. Staff withdrew to give the patient time and space to calm herself. Patient was then visible on the unit but said nothing to staff, walking around with a blanket wrapped around herself. At approximately 0100 of 07/15, this patient asked for the HS medications meant to be administered at 2100 on 07/14. This insurance writer informed patient that it was too late to administer the rest of her HS medications. The patient told this insurance writer everyone else does it! Then began telling this insurance writer a rambling, nonsensical story. Patient stated I was told I couldn't get ADLs til Friday. I need my ADLs. I called my mother and told her so. This insurance writer asked what the patient meant. Patient stated ADLs is my shampoo, and my conditioner. People are lying about it! Everyone lies to me! My mother lied and said I was going home Friday! The [facility] lies. I know you're all talking about me. I know you're all against me! Due to the patient's emotional state, this insurance writer was unable to complete a full and thorough assessment.
[2024-07-15] MEDS: Omeprazole 20 MG CAPSULE.DR PO (06:03)
[2024-07-15] MEDS: Throat Lozenge, Medicated LOZENGE 1 LOZENGE MUCOUS MEM (06:07)
[2024-07-15 08:40] VITALS: BP 150/91; PULSE 94; RESP 18; TEMP 36.1; O2SAT 97
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
[2024-07-15 20:00] VITALS: BP 142/93; PULSE 85; O2SAT 100
[2024-07-15] MEDS: Divalproex Sodium ER 500 MG TAB.ER.24H 1500 MG PO (22:01)
[2024-07-15] MEDS: OLANZapine ODT 10 MG TAB.RAPDIS 20 MG TRANSLINGU (22:01)
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
[2024-07-16] MEDS: LORazepam 0.5 MG TABLET PO (01:39)
[2024-07-16 08:36] VITALS: BP 136/76; RESP 18; TEMP 36.1; O2SAT 100
[2024-07-16] MEDS: polyethylene glycoL 3350 17 GM POWD.PACK PO (08:53)
[2024-07-16] MEDS: cloNIDine HCL 0.1 MG TABLET PO ×2 (08:53→23:52)
[2024-07-16] MEDS: Lactase TABLET 1 TAB PO (08:54)
[2024-07-16] MEDS: Loratadine 10 MG TABLET PO (08:54)
[2024-07-16] MEDS: Propranolol HCL 10 MG TABLET 15 MG PO ×2 (08:54→23:53)
[2024-07-16] MEDS: busPIRone HCl 5 MG TABLET PO (08:54)
[2024-07-16] MEDS: Omeprazole 20 MG CAPSULE.DR PO (08:54)
[2024-07-16] MEDS: Cholecalciferol (Vitamin D3) 25 MCG TABLET PO (08:54)
[2024-07-16 08:59] VITALS: BP 132/87; PULSE 84; TEMP 36.8; O2SAT 98
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
[2024-07-16 20:00] VITALS: BP 125/95; PULSE 87; RESP 16; TEMP 36.3; O2SAT 100
[2024-07-16] MEDS: OLANZapine ODT 10 MG TAB.RAPDIS 20 MG TRANSLINGU (21:46)
[2024-07-16] MEDS: Divalproex Sodium ER 500 MG TAB.ER.24H 1500 MG PO (21:46)
[2024-07-16 23:52] VITALS: BP 126/58
[2024-07-16] MEDS: Melatonin 3 MG TABLET 6 MG PO (23:52)
[2024-07-16] MEDS: hydrOXYzine HCL 50 MG TABLET PO (23:52)
[2024-07-16 23:53] VITALS: BP 126/58; PULSE 88
[2024-07-16] MEDS: traZODone HCL 50 MG TABLET 150 MG PO (23:54)
[2024-07-17] MEDS: LORazepam 0.5 MG TABLET PO (04:49)
[2024-07-17] MEDS: Omeprazole 20 MG CAPSULE.DR PO (07:04)
[2024-07-17 08:00] VITALS: BP 140/85; PULSE 93; TEMP 36.8; O2SAT 97
[2024-07-17] MEDS: Propranolol HCL 10 MG TABLET 15 MG PO ×2 (08:18→23:55)
[2024-07-17] MEDS: Cholecalciferol (Vitamin D3) 25 MCG TABLET PO (08:18)
[2024-07-17] MEDS: Loratadine 10 MG TABLET PO (08:18)
[2024-07-17] MEDS: Lactase TABLET 1 TAB PO (08:18)
[2024-07-17] MEDS: polyethylene glycoL 3350 17 GM POWD.PACK PO (08:19)
[2024-07-17] MEDS: busPIRone HCl 5 MG TABLET PO (08:19)
[2024-07-17] MEDS: cloNIDine HCL 0.1 MG TABLET PO ×2 (08:19→23:54)
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
[2024-07-17] MEDS: Acetaminophen 325 MG TABLET 650 MG PO (09:38)
[2024-07-17] MEDS: Divalproex Sodium ER 500 MG TAB.ER.24H 1500 MG PO (22:41)
[2024-07-17] MEDS: OLANZapine ODT 10 MG TAB.RAPDIS 20 MG TRANSLINGU (22:42)
[2024-07-17 23:54] VITALS: BP 130/70
[2024-07-17] MEDS: traZODone HCL 50 MG TABLET 150 MG PO (23:54)
[2024-07-17 23:55] VITALS: BP 130/70; PULSE 89
[2024-07-18] MEDS: Melatonin 3 MG TABLET 6 MG PO ×2 (00:04→23:34)
[2024-07-18] MEDS: Ondansetron ODT 4 MG TAB.RAPDIS TRANSLINGU (05:14)
[2024-07-18] MEDS: Omeprazole 20 MG CAPSULE.DR PO (05:14)
[2024-07-18 08:05] VITALS: BP 129/73; PULSE 84; TEMP 36.4; O2SAT 98
[2024-07-18] MEDS: polyethylene glycoL 3350 17 GM POWD.PACK PO (08:16)
[2024-07-18] MEDS: Propranolol HCL 10 MG TABLET 15 MG PO (08:17)
[2024-07-18] MEDS: cloNIDine HCL 0.1 MG TABLET PO ×2 (08:17→23:33)
[2024-07-18] MEDS: Lactase TABLET 1 TAB PO (08:17)
[2024-07-18] MEDS: Cholecalciferol (Vitamin D3) 25 MCG TABLET PO (08:17)
[2024-07-18] MEDS: Loratadine 10 MG TABLET PO (08:18)
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
[2024-07-18] MEDS: Milk of Magnesia 30 ML ORAL.SUSP PO (18:33)
[2024-07-18] MEDS: Sennosides 8.6 MG TABLET PO (18:33)
[2024-07-18 20:00] VITALS: BP 129/78; PULSE 80; TEMP 36.4; O2SAT 98
[2024-07-18] MEDS: OLANZapine ODT 10 MG TAB.RAPDIS 20 MG TRANSLINGU (21:20)
[2024-07-18] MEDS: Divalproex Sodium ER 500 MG TAB.ER.24H 1500 MG PO (21:20)
[2024-07-18] MEDS: Acetaminophen 325 MG TABLET 650 MG PO (22:23)
[2024-07-18 23:33] VITALS: BP 115/57
[2024-07-18] MEDS: traZODone HCL 50 MG TABLET 150 MG PO (23:34)
[2024-07-18] MEDS: hydrOXYzine HCL 50 MG TABLET PO (23:37)
[2024-07-19] MEDS: Artificial Tears 15 ML DROPS 1 DROP EYE-BOTH (02:22)
[2024-07-19] MEDS: Sodium Chloride 0.65 % Nasal 44 ML SPRBTL 1 SPRAY NOSTRIL-B ×2 (04:46→09:03)
[2024-07-19 07:58] VITALS: BP 134/88; PULSE 86; RESP 20; TEMP 36.8; O2SAT 98
[2024-07-19] MEDS: Propranolol HCL 10 MG TABLET PO (08:29)
[2024-07-19] MEDS: cloNIDine HCL 0.1 MG TABLET PO (08:29)
[2024-07-19] MEDS: Loratadine 10 MG TABLET PO (08:29)
[2024-07-19] MEDS: Lactase TABLET 1 TAB PO (08:29)
[2024-07-19] MEDS: polyethylene glycoL 3350 17 GM POWD.PACK PO (08:30)
[2024-07-19] MEDS: Cholecalciferol (Vitamin D3) 25 MCG TABLET PO (08:30)
[2024-07-19] MEDS: Triamcinolone Acet 0.5 % Cream 15 GM TUBE 1 APPL TOPICAL (09:03)
--- NOTE | 2024-07-19 09:46 | P.PNPSI_ITS ---
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 Reason for continued inpatient stay Substantial Risk for: stable for discharge Time Spent With Patient Time: Total time managing care of this patient today ____ minutes.
[2024-07-19] MEDS: Sennosides 8.6 MG TABLET PO (10:43)
[2024-07-19] MEDS: Acetaminophen 325 MG TABLET 650 MG PO ×2 (10:45→19:01)
[2024-07-19 20:00] VITALS: BP 149/83; PULSE 83; RESP 18; TEMP 36.4; O2SAT 98
[2024-07-19] MEDS: OLANZapine ODT 10 MG TAB.RAPDIS 20 MG TRANSLINGU (20:59)
[2024-07-19] MEDS: Divalproex Sodium ER 500 MG TAB.ER.24H 1500 MG PO (21:00)
[2024-07-20] MEDS: Acetaminophen 325 MG TABLET 650 MG PO ×2 (05:16→14:49)
[2024-07-20] MEDS: Omeprazole 20 MG CAPSULE.DR PO (07:32)
[2024-07-20 08:00] VITALS: BP 136/89; PULSE 76; RESP 20; TEMP 36.9; O2SAT 98
[2024-07-20] MEDS: Loratadine 10 MG TABLET PO (08:23)
[2024-07-20] MEDS: Cholecalciferol (Vitamin D3) 25 MCG TABLET PO (08:23)
[2024-07-20] MEDS: Lactase TABLET 1 TAB PO (08:23)
[2024-07-20] MEDS: polyethylene glycoL 3350 17 GM POWD.PACK PO (08:24)
[2024-07-20 09:50] VITALS: BP 130/80
[2024-07-20] MEDS: cloNIDine HCL 0.1 MG TABLET PO (09:50)
--- NOTE | 2024-07-20 11:18 | HO.PSYCHPN ---
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 WNL; associated labs WNL -team working with outpatient team on dispo will DC Abilify 10 mg daily (outpt provider had intended for LOPEZ Maintenna); patient does not really want to and patient's mother felt it was not all that helpful in the past Approved medications with substituted judgment: Abilify/Abilify Maintena Zyprexa Thorazine Haldol/Haldol deck Invega/Invega Sustenna Risperdal/Consta/ Uzedy Ziprasidone Patient educated on: diagnosis, medication risk/benefits and therapeutic strategies Informed Consent: understands Reason for continued inpatient stay Substantial Risk for: stable for discharge Time Spent With Patient Time: Total time managing care of this patient today ____ minutes.
[2024-07-20] MEDS: LORazepam 0.5 MG TABLET PO (15:36)
[2024-07-20] MEDS: hydrOXYzine HCL 50 MG TABLET PO (15:36)
--- NOTE | 2024-07-20 17:25 | PM.PSYDC ---
DS: Providers Provider Date of Service: 07/21/24 Date of admission: 06/07/24 13:32 Date of discharge: 07/21/24 Primary care physician: Unknown Physician Attending physician on admission: Gavin Arrieta Attending physician on discharge: Gavin Arrieta DS: Diagnosis Discharge Diagnosis (1) Bipolar disorder, unspecified: Status: Acute (2) PTSD (post-traumatic stress disorder): Status: Acute (3) Intellectual disability: Status: Acute DS: Medications Discharge Medications Home Medications: Home Medications ?Medication ?Instructions ?Recorded ?Confirmed wheat dextrin 1 gram tablet 3 - 5 g PO DAILY 06/04/24 06/04/24 Previous Rx's ?Medication ?Instructions ?Recorded acetaminophen 325 mg tablet 650 mg (2 x 325 mg) PO Q6H PRN 07/20/24 Headache/Pain Mild Scale (4-6) 30 days #120 tabs albuterol sulfate 90 mcg/actuation 2 inh inhalation Q4H PRN shortness 07/20/24 aerosol inhaler (Ventolin HFA) of breath or wheezing 30 days #8.5 grams betamethasone dipropionate 0.05 % 1 appl topical MOWEFR 30 days #15 07/20/24 topical cream grams calcipotriene 0.005 % topical 1 appl topical MOWEFR 30 days #60 07/20/24 ointment grams cholecalciferol (vitamin D3) 25 25 mcg PO DAILY 30 days #30 tabs 07/20/24 mcg (1,000 unit) tablet clonidine HCl 0.1 mg tablet 0.1 mg PO DAILY 30 days #30 tabs 07/20/24 divalproex 500 mg tablet,extended 1,500 mg (3 x 500 mg) PO BEDTIME 07/20/24 release 24 hr 30 days #90 tabs fluoride (sodium) 1.1 % dental 1 appl dental DIRECTED 30 days 07/20/24 cream (Sodium Fluoride 5000 Plus) #51 grams fluticasone propionate 50 2 spray intranasal DAILY PRN 07/20/24 mcg/actuation nasal Allergy Symptoms 30 days #16 grams spray,suspension hydroxyzine HCl 50 mg tablet 50 mg PO Q6H PRN mild anxiety or 07/20/24 Insomnia 30 days #90 tabs ibuprofen 600 mg tablet 600 mg PO Q6H PRN period, muscle, 07/20/24 headache pain 30 days #90 tabs ketotifen fumarate 0.025 % (0.035 1 drp ophthalmic (eye) Q12H PRN 07/20/24 %) eye drops Allergy Symptoms 30 days #5 mL lactase 3,000 unit tablet 3,000 unit PO DAILY 30 days #30 07/20/24 (Dairy-Aid) tabs loratadine 10 mg tablet 10 mg PO DAILY 30 days #30 tabs 07/20/24 lorazepam 1 mg tablet 0.5 mg (1/2 x 1 mg) PO TID PRN 07/20/24 moderate anxiety 30 days #45 tabs melatonin 5 mg tablet 5 mg PO BEDTIME 30 days #30 tabs 07/20/24 mupirocin 2 % topical ointment 1 appl topical MOWEFR 30 days #15 07/20/24 grams olanzapine 10 mg disintegrating 10 mg translingual BID PRN 07/20/24 tablet agitation 30 days #60 tabs olanzapine 20 mg disintegrating 20 mg PO BEDTIME 30 days #30 tabs 07/20/24 tablet omeprazole 20 mg capsule,delayed 20 mg PO DAILY 30 days #30 caps 07/20/24 release peg [id number] 1 1 drp ophthalmic (eye) Q4H PRN b/l 07/20/24 %-0.2 %-0.2 % eye drops eye dryness 30 days #15 mL (Artificial Tears ([id number])) polyethylene glycol 3350 17 17 g PO DAILY 30 days #510 grams 07/20/24 gram/dose oral powder sennosides 25 mg tablet 50 mg (2 x 25 mg) PO DAILY PRN 07/20/24 Constipation 30 days #60 tabs sodium chloride 0.65 % nasal spray 1 spray intranasal Q4H PRN for dry 07/20/24 aerosol (Deep Sea Nasal) nares (nostril) 30 days #44 mL trazodone 150 mg tablet 150 mg PO BEDTIME 30 days #30 tabs 07/20/24 DS: Summary Time Spent with Patient Time attestation: Total time managing care of this patient today ____ minutes. Discharge Plan Discharge Anticipated Discharge Date/Time: 07/21/24 11:00 Patient Disposition: Home, Self-Care Discharge Diagnosis: PTSD, developmental delay (provisional dx of bipolar dx) Referrals: Diann Luxame, [facility] [Other] - 1 Week (Patient will follow-up with outpatient psychiatric provider after discharge. [facility] will schedule hospital discharge appointment.) Jeni Birch: [facility] [Other] - 07/21/24 11:00 am (Patient returning to longterm placement ) Physician,Unknown J [Primary Care Provider] - 1 Week Discharge Medications: New acetaminophen 325 mg Tablet 650 mg PO Q6H PRN (Reason: Headache/Pain Mild Scale (4-6)) 30 Days Qty: 120 0RF divalproex 500 mg Tablet Extended Release 24 Hr 1,500 mg PO BEDTIME 30 Days Qty: 90 0RF olanzapine 20 mg tablet,disintegrating 20 mg PO BEDTIME 30 Days Qty: 30 0RF olanzapine 10 mg Tablet,Disintegrating 10 mg translingual BID PRN (Reason: agitation) 30 Days Qty: 60 0RF Artificial Tears(va-zeyk-cifn) 1-0.2-0.2 % Drops 1 drp ophthalmic (eye) Q4H PRN (Reason: b/l eye dryness) 30 Days Qty: 15 0RF [place] Sea Nasal 0.65 % Aerosol,[place] 1 spray intranasal Q4H PRN (Reason: for dry nares (nostril)) 30 Days Qty: 44 0RF lactase [Dairy-Aid] 3,000 unit Tablet 3,000 unit PO DAILY 30 Days Qty: 30 0RF Continued wheat dextrin 1 gram Tablet 3 - 5 g PO DAILY clonidine HCl 0.1 mg tablet 0.1 mg PO DAILY 30 Days Qty: 30 0RF ibuprofen 600 mg tablet 600 mg PO Q6H PRN (Reason: period, muscle, headache pain) 30 Days Qty: 90 0RF loratadine 10 mg Tablet 10 mg PO DAILY 30 Days Qty: 30 0RF ketotifen fumarate 0.025 % (0.035 %) Drops 1 drp OPHTHALMIC (EYE) Q12H PRN (Reason: Allergy Symptoms) 30 Days Qty: 5 0RF betamethasone dipropionate 0.05 % cream 1 appl topical MOWEFR 30 Days Qty: 15 0RF Rx Instructions: apply to affected areas mupirocin 2 % ointment 1 appl topical MOWEFR 30 Days Qty: 15 0RF Rx Instructions: apply to affected area polyethylene glycol 3350 17 gram/dose powder 17 g PO DAILY 30 Days Qty: 510 0RF fluticasone propionate 50 mcg/actuation spray,suspension 2 spray intranasal DAILY PRN (Reason: Allergy Symptoms) 30 Days Qty: 16 0RF sennosides 25 mg Tablet 50 mg PO DAILY PRN (Reason: Constipation) 30 Days Qty: 60 0RF calcipotriene 0.005 % ointment 1 appl topical MOWEFR 30 Days Qty: 60 0RF Rx Instructions: apply to affected areas cholecalciferol (vitamin D3) 25 mcg (1,000 unit) tablet 25 mcg PO DAILY 30 Days Qty: 30 0RF melatonin 5 mg tablet 5 mg PO BEDTIME 30 Days Qty: 30 0RF Changed hydroxyzine HCl 50 mg tablet 50 mg PO Q6H PRN (Reason: mild anxiety or Insomnia) 30 Days Qty: 90 0RF trazodone 150 mg tablet 150 mg PO BEDTIME 30 Days Qty: 30 0RF lorazepam 1 mg tablet 0.5 mg PO TID PRN (Reason: moderate anxiety) 30 Days Qty: 45 0RF albuterol sulfate [Ventolin HFA] 90 mcg/actuation Hfa Aerosol Inhaler 2 inh INHALATION Q4H PRN (Reason: shortness of breath or wheezing) 30 Days Qty: 8.5 0RF fluoride (sodium) [Sodium Fluoride 5000 Plus] 1.1 % Cream 1 appl DENTAL DIRECTED 30 Days Qty: 51 0RF Rx Instructions: use daily omeprazole 20 mg capsule,delayed release(DR/EC) 20 mg PO DAILY 30 Days Qty: 30 0RF Discontinued propranolol 60 mg tablet 30 mg PO BID divalproex 500 mg tablet,delayed release (DR/EC) 500 mg PO BID acetaminophen 500 mg tablet 1,000 mg PO Q8H olanzapine 15 mg tablet 15 mg PO BEDTIME buspirone 15 mg tablet 15 mg PO TID Discharge Orders: Discharge Order (Routine); Ordered 07/21/24 Ordered By: Gavin Arrieta Diet: Regular diet Activity on Discharge: As tolerated Stand Alone Forms: Patient Portal Discharge page Print Language: Pashto Care Plan Goals: Maintain mood and safe behaviors Take medications as prescribed Practice coping skills Continue with outpatient providers and reach out to them as needed Health Concerns: Mood stability and behaviors constipation eczema Plan of Treatment: Follow up with your PCP, psychiatric provider and other outpatient providers regarding above concerns Take medications as prescribed Assessment: Risk assessment at time of discharge:? Patient was interviewed prior to discharge and found to be fully oriented and without any SI or HI. Patient has improved insight and judgment and wants to continue treatment. Patient is not in imminent risk of harm to self or others and has a safety plan that includes presenting to the closest ER or calling 911 if feeling unsafe.? Patient has been observed closely by nursing and unit staff throughout admission; patient has not engaged in any behaviors that suggest dangerousness to self or others and has demonstrated appropriate behaviors and impulse control
[2024-07-20 20:00] VITALS: RESP 16
[2024-07-20] MEDS: Divalproex Sodium ER 500 MG TAB.ER.24H 1500 MG PO (22:00)
[2024-07-20] MEDS: OLANZapine ODT 10 MG TAB.RAPDIS 20 MG TRANSLINGU (22:00)
[2024-07-21 08:00] VITALS: RESP 18
== END 2024-07-21 11:46 | disposition home or self-care (01) | DRG 753 ==
LOC: HO.ED 06-07 00:01 → HO.PM5 06-07 13:46
PROVIDERS: Physician Assistant; Admitting Provider Psychiatry & Neurology Psychiatry; Emergency Provider Emergency Medicine Emergency Medical Services; Visit Provider Psychiatry & Neurology Psychiatry
DX: F31.9 Bipolar disorder, unspecified (principal); F79 Unspecified intellectual disabilities; F43.10 Post-traumatic stress disorder, unspecified; Z78.1 Physical restraint status; Z79.899 Other long term (current) drug therapy
CPT/HCPCS: 36415; 80053; 80076; 80164; 80307; 81001; 81003; 82140; 83036; 84702; 85025; 93005; 99285; J1200; J1630; J2060; J2250; J2359; J3230; J3486; S9485

== ENCOUNTER 2024-06-07 13:32 | Outpatient (BNV) | payer MEDICAID, SELFPAY | END 2024-07-10 | PROVIDERS: Admitting Provider Psychiatry & Neurology Psychiatry; Emergency Provider Emergency Medicine Emergency Medical Services; Visit Provider Internal Medicine Cardiovascular Disease | DX: I49.9 Cardiac arrhythmia, unspecified (principal) | CPT/HCPCS: 93010 ==

== ENCOUNTER → 2024-06-07 13:32 | Outpatient (BNV) | payer OTHER, SELFPAY | PROVIDERS: Admitting Provider Psychiatry & Neurology Psychiatry; Emergency Provider Emergency Medicine Emergency Medical Services; Visit Provider Psychiatry & Neurology Psychiatry | DX: F31.13 Bipolar disorder, current episode manic without psychotic features, severe (principal); F43.11 Post-traumatic stress disorder, acute; F79 Unspecified intellectual disabilities | CPT/HCPCS: 90792; 99231; 99232; 99499 ==